=== PATIENT | male | born 1970 | race Caucasian/White ===

== ENCOUNTER → 2022-06-08 12:00 | Outpatient (CLI) | payer SELFPAY ==
[2022-06-08 19:58] LABS: Basophils # 0.1 K/mm3 (0-0.2); Basophils % 0.8 % (0.1-2.0); Eosinophils # 0.1 K/mm3 (0.0-0.4); Eosinophils % 1.4 % (0.1-12.0); Hematocrit 53.9 % (42.0-52.0); Hemoglobin 17.2 g/dL (14.1-18.0); Lymphocytes % 24.3 % (10-50); Mean Corpuscular HGB Conc 31.9 g/dL (31.8-35.4); Mean Corpuscular Hemoglobin 35.5 pg (27.0-31.2); Mean Corpuscular Volume 111.4 fl (80-94); Mean Platelet Volume 8.7 fl (7.4-10.4); Monocytes # 0.5 K/mm3 (0.1-1.0); Monocytes % 6.2 % (1.7-9.3); Neutrophils # 5.5 K/mm3 (1.8-7.8); Neutrophils % 67.3 % (37.0-80.0); Platelet Count 335 K/mm3 (142-424); Red Blood Count 4.84 M/mm3 (4.60-6.20); Red Cell Distribution Width 14.2 % (11.5-17.5); White Blood Count 8.2 K/mm3 (4.8-10.8)
[2022-06-08 20:06] LABS: Anion Gap 15.8 mEq/L (5-15); Blood Urea Nitrogen 7 mg/dl (9-20); Calcium 8.6 mg/dl (8.4-10.2); Carbon Dioxide 31 mmol/L (22.0-30.0); Chloride 97 mmol/L (98-107); Estimated Glomerular Filt Rate 141 ml/min (>60); GFR (African American) 171 ML/MIN (>60); Glucose 97 mg/dl (74-100); Potassium 4.8 mmoL/L (3.5-5.1); Sodium 139 mmol/L (136-145)
== END ==
PROVIDERS: PCP Family Medicine; Visit Provider Family Medicine
DX: R53.81 Other malaise (principal); R53.83 Other fatigue; I10 Essential (primary) hypertension; G62.9 Polyneuropathy, unspecified; Z20.822 Contact with and (suspected) exposure to COVID-19
CPT/HCPCS: 80048; 82533; 85025; C9803; U0003; U0005

== ENCOUNTER → 2022-06-14 11:58 | Outpatient (CLI) | payer OTHER, SELFPAY ==
[2022-06-14 12:52] LABS: Basophils # 0.1 K/mm3 (0-0.2); Basophils % 0.7 % (0.1-2.0); Eosinophils # 0.1 K/mm3 (0.0-0.4); Eosinophils % 0.7 % (0.1-12.0); Hematocrit 50.3 % (42.0-52.0); Hemoglobin 16.4 g/dL (14.1-18.0); Lymphocytes # 1.3 K/mm3 (0.7-4.5); Lymphocytes % 17.7 % (10-50); Mean Corpuscular HGB Conc 32.6 g/dL (31.8-35.4); Mean Corpuscular Hemoglobin 36.2 pg (27.0-31.2); Mean Corpuscular Volume 110.9 fl (80-94); Mean Platelet Volume 7.8 fl (7.4-10.4); Monocytes # 0.3 K/mm3 (0.1-1.0); Monocytes % 4.4 % (1.7-9.3); Neutrophils # 5.7 K/mm3 (1.8-7.8); Neutrophils % 76.5 % (37.0-80.0); Platelet Count 269 K/mm3 (142-424); Red Blood Count 4.54 M/mm3 (4.60-6.20); Red Cell Distribution Width 14.5 % (11.5-17.5); White Blood Count 7.5 K/mm3 (4.8-10.8)
[2022-06-14 12:57] LABS: Ammonia < 9 umol/L (9-30)
[2022-06-14 13:29] LABS: Alanine Aminotransferase 19 U/L (12-78); Albumin Level 4.7 g/dl (3.5-5.0); Albumin/Globulin Ratio 1.7 (1.1-1.8); Alkaline Phosphatase 175 U/L (38-126); Aspartate Amino Transferase 45 U/L (17-59); Bilirubin,Total 0.7 mg/dl (0.2-1.3); Blood Urea Nitrogen 5 mg/dl (9-20); Calcium 9.8 mg/dl (8.4-10.2); Carbon Dioxide 29 mmol/L (22.0-30.0); Chloride 92 mmol/L (98-107); Erythrocyte Sedimentation Rate 4 mm/hr (0-20); Estimated Glomerular Filt Rate 175 ml/min (>60); GFR (African American) 211 ML/MIN (>60); Globulin 2.7 g/dL (1.3-3.2); Glucose 95 mg/dl (74-100); Sodium 136 mmol/L (136-145); Total Protein,Serum 7.4 g/dl (6.3-8.2)
[2022-06-14 13:31] LABS: Ethyl Alcohol 281 mg/dl (0-10)
[2022-06-14 14:35] LABS: Vitamin B12 626 pg/mL (239-931)
[2022-06-14 14:44] LABS: Folate 8.46 ng/mL
[2022-06-15 15:20] LABS: Angiotensin Converting Enzyme 112 U/L (14-82)
[2022-06-16 18:13] LABS: Vitamin B1 170.4 nmol/L (66.5-200.0)
[2022-07-13 11:40] LABS: Hep A Ab, IgM NEGATIVE; Hepatitis B Core Antibody IgM NEGATIVE; Hepatitis B Surface Antigen NEGATIVE
[2022-07-13 11:41] LABS: Antinuclear Antibodies (ANA) NEGATIVE; Hepatitis C Antibody <0.1
[2022-07-30 21:53] LABS: HIV Screen 4th Generation wRfx Non Reactive
== END ==
PROVIDERS: PCP Family Medicine; Visit Provider Specialist
DX: G62.9 Polyneuropathy, unspecified (principal); G31.2 Degeneration of nervous system due to alcohol
CPT/HCPCS: 36415; 80053; 80074; 82140; 82164; 82607; 82746; 84425; 85025; 85651; 86038; 86225; 86235; 86703; G0432

== ENCOUNTER → 2023-02-15 17:00 | Outpatient (CLI) | payer OTHER, SELFPAY ==
[2023-02-15 17:13] LABS: Chloride 93 mmol/L (98-107); Sodium 133 mmol/L (136-145)
[2023-02-15 17:14] LABS: Basophils % 0.2 % (0.1-2.0); Eosinophils # 0.1 K/mm3 (0.0-0.4); Eosinophils % 0.6 % (0.1-12.0); Hematocrit 39.2 % (42.0-52.0); Hemoglobin 12.9 g/dL (14.1-18.0); Lymphocytes # 1.5 K/mm3 (0.7-4.5); Lymphocytes % 9.6 % (10-50); Mean Corpuscular Hemoglobin 33.5 pg (27.0-31.2); Mean Corpuscular Volume 101.6 fl (80-94); Mean Platelet Volume 8.8 fl (7.4-10.4); Monocytes % 6.4 % (1.7-9.3); Neutrophils # 12.7 K/mm3 (1.8-7.8); Neutrophils % 83.2 % (37.0-80.0); Platelet Count 676 K/mm3 (142-424); Red Blood Count 3.85 M/mm3 (4.60-6.20); Red Cell Distribution Width 14.9 % (11.5-17.5); White Blood Count 15.2 K/mm3 (4.8-10.8)
[2023-02-15 17:15] LABS: Blood Urea Nitrogen 15 mg/dl (9-20); Estimated Glomerular Filt Rate 174 ml/min (>60); GFR (African American) 210 ML/MIN (>60)
[2023-02-15 17:16] LABS: Alanine Aminotransferase 20 U/L (12-78); Albumin Level 3.2 g/dl (3.5-5.0); Albumin/Globulin Ratio 1.3 (1.1-1.8); Alkaline Phosphatase 93 U/L (38-126); Aspartate Amino Transferase 30 U/L (17-59); Bilirubin,Total 0.2 mg/dl (0.2-1.3); Calcium 8.8 mg/dl (8.4-10.2); Carbon Dioxide 30 mmol/L (22.0-30.0); Globulin 2.4 g/dL (1.3-3.2); Glucose 83 mg/dl (74-100); Total Protein,Serum 5.6 g/dl (6.3-8.2)
[2023-02-15 17:17] LABS: MANUAL DIFFERENTIAL MANUAL DIFFERENTIAL (MANUAL DIFF)
[2023-02-15 17:53] LABS: Eosinophils % 1 % (0-3); Lymphocytes % 10 % (10-50); Monocytes % 1 % (2-9); Neutrophils % 88 % (42-76); Total Cells Counted 100
[2023-02-15 17:54] LABS: Platelet Estimate Moderate Increase; Poikilocytosis 1+
== END ==
PROVIDERS: PCP Family Medicine; Visit Provider Family Medicine
DX: I10 Essential (primary) hypertension (principal)
CPT/HCPCS: 80053; 85007; 85025

== ENCOUNTER → 2023-02-22 14:00 | Outpatient (CLI) | payer OTHER, SELFPAY ==
[2023-02-22 16:33] LABS: Chloride 97 mmol/L (98-107); Sodium 134 mmol/L (136-145)
[2023-02-22 16:34] LABS: Potassium 4.4 mmoL/L (3.5-5.1)
[2023-02-22 16:37] LABS: Blood Urea Nitrogen 10 mg/dl (9-20); Calcium 8.6 mg/dl (8.4-10.2); Estimated Glomerular Filt Rate 225 ml/min (>60); GFR (African American) 272 ML/MIN (>60); Glucose 86 mg/dl (74-100)
[2023-02-22 16:39] LABS: Anion Gap 13.4 mEq/L (5-15); Carbon Dioxide 28 mmol/L (22.0-30.0)
== END ==
PROVIDERS: PCP Family Medicine; Visit Provider Family Medicine
DX: E87.1 Hypo-osmolality and hyponatremia (principal)
CPT/HCPCS: 80048

== ENCOUNTER 2024-03-14 12:03 | Outpatient (CLI) | payer OTHER, SELFPAY ==
[2024-03-14 17:15] LABS: Basophils % 0.4 % (0.1-2.0); Eosinophils # 0.1 K/mm3 (0.0-0.4); Eosinophils % 0.7 % (0.1-12.0); Hematocrit 40.2 % (42.0-52.0); Hemoglobin 12.7 g/dL (14.1-18.0); Lymphocytes # 1.4 K/mm3 (0.7-4.5); Lymphocytes % 19.5 % (10-50); Mean Corpuscular HGB Conc 31.6 g/dL (31.8-35.4); Mean Corpuscular Volume 117.3 fl (80-94); Mean Platelet Volume 8.9 fl (7.4-10.4); Monocytes # 0.5 K/mm3 (0.1-1.0); Neutrophils # 5.1 K/mm3 (1.8-7.8); Neutrophils % 72.4 % (37.0-80.0); Platelet Count 761 K/mm3 (142-424); Red Blood Count 3.43 M/mm3 (4.60-6.20)
[2024-03-14 17:18] LABS: Alanine Aminotransferase 28 U/L (12-78); Albumin Level 3.7 g/dl (3.5-5.0); Albumin/Globulin Ratio 1.4 (1.1-1.8); Alkaline Phosphatase 215 U/L (38-126); Anion Gap 13.8 mEq/L (5-15); Aspartate Amino Transferase 42 U/L (17-59); Bilirubin,Total 0.5 mg/dl (0.2-1.3); Blood Urea Nitrogen 8 mg/dl (9-20); Carbon Dioxide 23 mmol/L (22.0-30.0); Chloride 106 mmol/L (98-107); Estimated Glomerular Filt Rate 224 ml/min (>60); GFR (African American) 271 ML/MIN (>60); Globulin 2.6 g/dL (1.3-3.2); Glucose 75 mg/dl (74-100); Magnesium 1.5 mg/dl (1.6-2.3); Potassium 3.8 mmoL/L (3.5-5.1); Sodium 139 mmol/L (136-145); Total Protein,Serum 6.3 g/dl (6.3-8.2)
[2024-03-14 18:37] LABS: Folate > 20.00 ng/mL; Vitamin B12 > 1000 pg/mL (239-931)
== END 2024-03-14 23:59 | disposition home or self-care (01) ==
LOC: LAB.DROPOF 03-15 12:03
PROVIDERS: PCP Nurse Practitioner Family; Visit Provider Nurse Practitioner Family
DX: E87.6 Hypokalemia (principal); E83.42 Hypomagnesemia; E56.9 Vitamin deficiency, unspecified
CPT/HCPCS: 80053; 82607; 82746; 83735; 85025

== ENCOUNTER 2024-03-25 15:20 | Outpatient (CLI) | payer OTHER, SELFPAY ==
[2024-03-25 18:02] LABS: Basophils % 0.4 % (0.1-2.0); Eosinophils # 0.2 K/mm3 (0.0-0.4); Eosinophils % 2.4 % (0.1-12.0); Hematocrit 44.4 % (42.0-52.0); Hemoglobin 14.4 g/dL (14.1-18.0); Lymphocytes # 1.9 K/mm3 (0.7-4.5); Lymphocytes % 24.4 % (10-50); Mean Corpuscular HGB Conc 32.5 g/dL (31.8-35.4); Mean Corpuscular Hemoglobin 36.7 pg (27.0-31.2); Mean Corpuscular Volume 112.8 fl (80-94); Mean Platelet Volume 8.7 fl (7.4-10.4); Monocytes # 0.7 K/mm3 (0.1-1.0); Monocytes % 9.2 % (1.7-9.3); Neutrophils # 4.8 K/mm3 (1.8-7.8); Neutrophils % 63.5 % (37.0-80.0); Platelet Count 530 K/mm3 (142-424); Red Blood Count 3.94 M/mm3 (4.60-6.20); Red Cell Distribution Width 14.4 % (11.5-17.5); Reticulocyte % (Auto) 1.9 % (0.9-3.2); White Blood Count 7.6 K/mm3 (4.8-10.8)
[2024-03-25 18:26] LABS: Anion Gap 16.9 mEq/L (5-15); Blood Urea Nitrogen 7 mg/dl (9-20); Calcium 9.9 mg/dl (8.4-10.2); Carbon Dioxide 20 mmol/L (22.0-30.0); Chloride 99 mmol/L (98-107); Estimated Glomerular Filt Rate 224 ml/min (>60); GFR (African American) 271 ML/MIN (>60); Glucose 93 mg/dl (74-100); Potassium 3.9 mmoL/L (3.5-5.1); Sodium 132 mmol/L (136-145)
[2024-03-26 14:29] LABS: Magnesium 1.8 mg/dl (1.6-2.3)
== END 2024-03-25 23:59 | disposition home or self-care (01) ==
LOC: LAB.DROPOF 03-26 15:20
PROVIDERS: PCP Family Medicine; Visit Provider Family Medicine
DX: I10 Essential (primary) hypertension (principal); R79.0 Abnormal level of blood mineral; Z72.0 Tobacco use
CPT/HCPCS: 80048; 83735; 85025; 85044

== ENCOUNTER 2024-10-26 14:53 | Inpatient (IN) | payer OTHER, SELFPAY ==
[2024-10-26] VITALS (19 sets, daily range): BP systolic 152–193; BP diastolic 99–144; PULSE 68–115; RESP 16–30; TEMP 36.6–37.2; O2SAT 90–100; BMI 22.4; BMI 21.4
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
[2024-10-26] MEDS: MVI, ADULT NO.1 WITH VIT K 10 ML, THIAMINE HCL 100 MG, MAGNESIUM SULFATE 2 GM in LACTAT... 150 ML IV (15:30)
[2024-10-26] MEDS: diazePAM 10MG/2ML SYRINGE 10 MG IV (15:35)
[2024-10-26] MEDS: ONDANSETRON 4MG/2ML VIAL 4 MG IV (15:37)
[2024-10-26 15:48] LABS: Alanine Aminotransferase 70 U/L (12-78); Albumin Level 4.7 g/dl (3.5-5.0); Albumin/Globulin Ratio 1.8 (1.1-1.8); Alkaline Phosphatase 115 U/L (38-126); Anion Gap 12.6 mEq/L (5-15); Aspartate Amino Transferase 127 U/L (17-59); Bilirubin,Total 2.6 mg/dl (0.2-1.3); Blood Urea Nitrogen 53 mg/dl (9-20); Carbon Dioxide 37 mmol/L (22.0-30.0); Chloride 87 mmol/L (98-107); Creatinine Clearance Estimated 71 mL/min (50-200); Estimated Glomerular Filt Rate 58 ml/min (>60); GFR (African American) 70 ML/MIN (>60); Globulin 2.6 g/dL (1.3-3.2); Glucose 101 mg/dl (74-100); Phosphorous 2.7 mg/dl (2.5-4.5); Sodium 134 mmol/L (136-145); Total Protein,Serum 7.3 g/dl (6.3-8.2)
--- NOTE | 2024-10-26 15:52 | ECG_ITS ---
APPROVED REPORT Exam: Resting ECG HR:113 bpm ECG Measurements Heart Rate 113 AXES ID 137 P 58 QRSd 101 QRS 12 QT 357 T 79 QTc 424 Conclusion SINUS TACHYCARDIA WITH FREQUENT SUPRAVENTRICULAR PREMATURE COMPLEXES NONSPECIFIC T-WAVE ABNORMALITY ABNORMAL RHYTHM ECG UNCONFIRMED REPORT Sinus tachycardia with no ST elevation or depression. T wave inverstions in V2. QTc 424 Electronically signed by : JOSE MAJANO, 10/26/2024 21:02:35
[2024-10-26 15:56] LABS: Ethyl Alcohol < 10 mg/dl (0-10)
[2024-10-26 15:58] LABS: Basophils % 0.2 % (0.1-2.0); Eosinophils % 0.2 % (0.1-12.0); Hemoglobin 15.2 g/dL (14.1-18.0); Lymphocytes # 0.7 K/mm3 (0.7-4.5); Lymphocytes % 5.8 % (10-50); Mean Corpuscular HGB Conc 35.3 g/dL (31.8-35.4); Mean Corpuscular Hemoglobin 36.8 pg (27.0-31.2); Mean Corpuscular Volume 104.1 fl (80-94); Mean Platelet Volume 11.8 fl (7.4-10.4); Monocytes # 1.2 K/mm3 (0.1-1.0); Monocytes % 10.8 % (1.7-9.3); Neutrophils # 9.5 K/mm3 (1.8-7.8); Neutrophils % 82.7 % (37.0-80.0); Platelet Count 146 K/mm3 (142-424); Red Blood Count 4.13 M/mm3 (4.60-6.20); Red Cell Distribution Width 13.8 % (11.5-17.5); White Blood Count 11.5 K/mm3 (4.8-10.8)
[2024-10-26 16:01] LABS: Calcium 12.2 mg/dl (8.4-10.2); Potassium 2.6 mmoL/L (3.5-5.1)
--- NOTE | 2024-10-26 17:30 | PC.NURSE ---
verified compatibility for IV potassium with the rally bag. Joceline PROD states they can be ran together.
[2024-10-26 17:38] LABS: Activated Partial Thrombo Time 20.1 seconds (22.5-28.5); INR 0.87 (0.9-1.1); Prothrombin Time 9.7 seconds (9.2-12.1)
[2024-10-26] MEDS: KCl 20mEq/100ml 100 ML 50 MEQ IV ×2 (17:45→19:47)
--- NOTE | 2024-10-26 17:48 | EXP.HP ---
[facility] Disclaimer: The information contained in this section may have been updated after the patient was seen, as this information can be updated by other users. 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 He is currently on gabapentin prescribed by PCP and he was advised to continue avoiding alcohol, balanced diet, appropriate fluid intake and take thiamine 200 mg daily. Hypertension Surgical History H/O hernia repair Family History Mother Coronary artery disease Father Coronary artery disease Grandfather Diabetes Social History Smoking Status: Current every day smoker alcohol intake: never substance use type: denies use current occupational status: unemployed Travel in the last 8 weeks: Inside the [facility] housing: house Have you lived/traveled outside US in past 30 days?: No Contact w/someone who lives/traveled outside US past 30 days?: No Exposure to someone with infectious disease in past 14 days?: No Do you have a fever (greater than 100.4 F or 38 C)?: No Have you tested positive for COVID-19: No Exposed to someone with COVID-19 in past 14 days?: No Do you have a sore throat?: No Do you have a cough?: No Do you have any weakness?: No Do you have any diarrhea?: No Are you experiencing any unusual bleeding?: No Do you have any muscle aches/pain?: No Do you have any abdominal pain?: No Are you experiencing loss of taste or smell?: No Other Medical History Have you received the Pneumonia Vaccine: No Meds Home Medications and Allergies Home Medications ?Medication ?Instructions ?Recorded ?Confirmed ?Type thiamine HCl (vitamin B1) 100 mg 100 mg PO DAILY #90 tabs 03/14/24 10/26/24 Rx tablet amlodipine 5 mg tablet 10 mg (2 x 5 mg) PO DAILY 30 days 07/09/24 10/26/24 Rx #60 tabs New Prescriptions to Start Prescriptions: Allergies Allergy/AdvReac Type Severity Reaction Status Date / Time No Known Allergies Allergy Verified 10/26/24 15:23 Exam Data for Last 24 hours Vital signs and Labs for Last 24 Hours: Temp Pulse Resp BP Pulse Ox O2 Del Method 98.4 F 110 H 23 172/131 H 97 Nasal Cannula 10/26/24 14:54 10/26/24 17:30 10/26/24 14:54 10/26/24 17:30 10/26/24 17:30 10/26/24 17:30 Laboratory Results - last 24 hr 10/26/24 15:10: WBC 11.5 H, RBC 4.13 L, Hgb 15.2, Hct 43.0, MCV 104.1 H, MCH 36.8 H, MCHC 35.3, RDW 13.8, Plt Count 146, MPV 11.8 H, Neut % (Auto) 82.7 H, Lymph % (Auto) 5.8 L, [place] % (Auto) 10.8 H, Eos % (Auto) 0.2, Baso % (Auto) 0.2, Neut # (Auto) 9.5 H, Lymph # (Auto) 0.7, [place] # (Auto) 1.2 H, Eos # (Auto) 0.0, Baso # (Auto) 0.0, Sodium 134 L, Potassium 2.6 L*, Chloride 87 L, Carbon Dioxide 37 H, Anion Gap 12.6, BUN 53 H, Creatinine 1.30 H, Estimated Creat Clear 71, Estimated GFR 58 L, Est GFR ( Amer) 70, Glucose 101 H, Calcium 12.2 H*, Phosphorus 2.7, Magnesium 2.0, Total Bilirubin 2.6 H, AST 127 H, ALT 70, Alkaline Phosphatase 115, Total Protein 7.3, Albumin 4.7, Globulin 2.6, Albumin/Globulin Ratio 1.8, Plasma/Serum Alcohol < 10 I & O for Last 24 hours: Intake & Output 10/23/24 10/24/24 10/25/24 10/26/24 23:59 23:59 23:59 23:59 Weight 77.111 kg
--- NOTE | 2024-10-26 18:10 | PC.NURSE ---
notified of the need for a bed to admit for alcohol withdrawal.
--- NOTE | 2024-10-26 18:19 | PC.NURSE ---
house notified of admission to hospitalist for alcohol withdrawl
[2024-10-26 18:39] LABS: HIV Combo NEGATIVE (Negative)
[2024-10-26] MEDS: HYDRALAZINE 20MG/ML VIAL 10 MG IV (20:15)
[2024-10-26 20:28] LABS: Hepatitis C Ab Qual. W/ RFX NEGATIVE (Negative)
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
[2024-10-26] MEDS: PANTOPRAZOLE 40MG VIAL 40 MG IV (21:51)
[2024-10-26] MEDS: diazePAM 10MG/2ML SYRINGE 2 MG IV (23:17)
[2024-10-27] VITALS (21 sets, daily range): BP systolic 121–162; BP diastolic 92–123; PULSE 79–108; RESP 18–30; TEMP 36.6–37.1; O2SAT 83–95; BMI 22.9
[2024-10-27] MEDS: METOPROLOL TARTRATE 5MG/5ML VIAL 5 MG IV (00:08)
[2024-10-27] MEDS: LABETALOL 5MG/ML 20ML MDV 20 MG IV (01:10)
[2024-10-27] MEDS: 0.9% NaCl w/20mEq KCL 1,000 ML 125 ML IV ×3 (01:10→18:08)
[2024-10-27 02:02] LABS: Chloride 91 mmol/L (98-107); Sodium 132 mmol/L (136-145)
[2024-10-27 02:05] LABS: Anion Gap 8.6 mEq/L (5-15); Blood Urea Nitrogen 52 mg/dl (9-20); Carbon Dioxide 35 mmol/L (22.0-30.0); Creatinine Clearance Estimated 98 mL/min (50-200); Estimated Glomerular Filt Rate 88 ml/min (>60); GFR (African American) 106 ML/MIN (>60)
[2024-10-27 02:06] LABS: Calcium 10.1 mg/dl (8.4-10.2); Glucose 99 mg/dl (74-100)
--- NOTE | 2024-10-27 02:15 | PC.NURSE ---
Critical received from lab of patient K+ at 2.6. Provider notified, electrolyte replacement protocol utilized. SEE MAR.
[2024-10-27 02:20] LABS: Potassium 2.6 mmoL/L (3.5-5.1)
[2024-10-27] MEDS: KCl 20mEq/100ml 100 ML 50 MEQ IV ×4 (02:50→08:45)
[2024-10-27 05:17] LABS: Microscopic, Urine URINE MICROSCOPIC (MICROSCOPIC)
[2024-10-27 05:20] LABS: Appearance,Urine CLEAR (Clear); Blood, Urine Negative (Negative); Color,Urine YELLOW (Yellow); Glucose,Urine (UA) Negative (Negative); Ketones,Urine TRACE (Negative); Leukocyte Esterase,Urine Negative (Negative); Nitrate,Urine Negative (Negative); PH,Urine 5.5 (5.0-8.5); Protein,Urine TRACE (Negative); Specific Gravity, Urine >= 1.030 (1.005-1.030)
[2024-10-27 05:30] LABS: Amphetamine/Metha Screen,Urine Negative ng/ml (<1000)
[2024-10-27 05:31] LABS: Barbiturates Screen,Urine Negative ng/ml (<200); Benzodiazepines Screen,Urine Positive ng/ml (<200)
[2024-10-27 05:32] LABS: Cocaine Screen,Urine Negative ng/ml (<300)
[2024-10-27 05:33] LABS: Cannabinoid Screen,Urine Negative ng/ml (<50); Methadone Screen,Urine Negative ng/ml (<300)
[2024-10-27 05:34] LABS: Opiate Screen,Urine Negative ng/ml (<300); Phencyclidine Screen,Urine Negative ng/ml (<25)
[2024-10-27 05:46] LABS: Bilirubin,Urine Negative (Negative)
[2024-10-27 05:47] LABS: Bacteria,Urine Trace /lpf
--- NOTE | 2024-10-27 07:00 | XR_ITS ---
PROCEDURE INFORMATION: Exam: XR Left Hip Exam date and time: 10/27/2024 7:01 AM Age: 53 years old Clinical indication: Cellulitis and other: Deformity; Buttock; Known unfixed pelvic FX TECHNIQUE: Imaging protocol: Radiologic exam of the left hip. Views: 2 or 3 views hip with pelvis when performed. COMPARISON: No relevant prior studies available. FINDINGS: Bones/joints: There is dysplastic change of the right iliac bone consistent with old fracture. The remaining alignment is within normal limits with no acute fracture or dislocation. There is normal bony mineralization.There is mild degenerative arthropathy. Soft tissues: Unremarkable. Vasculature: There is diffuse atherosclerosis with calcification of the arteries.There are punctate calcifications with subtle central radiolucency consistent with phleboliths. IMPRESSION: No acute bony process is identified.
--- NOTE | 2024-10-27 07:00 | XR_ITS ---
PROCEDURE INFORMATION: Exam: XR Right Hip Exam date and time: 10/27/2024 6:53 AM Age: 53 years old Clinical indication: Cellulitis and other: Deformity; Buttock; Known unfixed pelvic FX TECHNIQUE: Imaging protocol: Radiologic exam of the right hip. Views: 2 or 3 views hip with pelvis when performed. COMPARISON: No relevant prior studies available. FINDINGS: Bones/joints: There is dysplastic change involving the right iliac bone consistent with old fracture. The remaining alignment and mineralization is within normal limits with no acute fracture or dislocation identified.There is mild degenerative arthropathy. Soft tissues: Unremarkable. Vasculature: There is diffuse atherosclerosis with calcification of the arteries.There are punctate calcifications with subtle central radiolucency consistent with phleboliths. IMPRESSION: No acute bony process is identified.
[2024-10-27 07:17] LABS: Basophils % 0.1 % (0.1-2.0); Hematocrit 40.6 % (42.0-52.0); Lymphocytes # 0.5 K/mm3 (0.7-4.5); Lymphocytes % 5.5 % (10-50); Mean Corpuscular HGB Conc 34.5 g/dL (31.8-35.4); Mean Corpuscular Volume 107.4 fl (80-94); Mean Platelet Volume 11.4 fl (7.4-10.4); Monocytes # 1.5 K/mm3 (0.1-1.0); Monocytes % 17.3 % (1.7-9.3); Neutrophils # 6.7 K/mm3 (1.8-7.8); Neutrophils % 76.5 % (37.0-80.0); Platelet Count 124 K/mm3 (142-424); Red Blood Count 3.78 M/mm3 (4.60-6.20); Red Cell Distribution Width 14.3 % (11.5-17.5); White Blood Count 8.8 K/mm3 (4.8-10.8)
[2024-10-27 07:31] LABS: Albumin Level 3.6 g/dl (3.5-5.0); Chloride 95 mmol/L (98-107); Potassium 3.2 mmoL/L (3.5-5.1); Sodium 136 mmol/L (136-145)
[2024-10-27 07:33] LABS: Blood Urea Nitrogen 50 mg/dl (9-20); Creatinine Clearance Estimated 104 mL/min (50-200); Estimated Glomerular Filt Rate 88 ml/min (>60); GFR (African American) 106 ML/MIN (>60)
[2024-10-27 07:34] LABS: Alanine Aminotransferase 48 U/L (12-78); Albumin/Globulin Ratio 1.6 (1.1-1.8); Alkaline Phosphatase 105 U/L (38-126); Anion Gap 11.2 mEq/L (5-15); Aspartate Amino Transferase 98 U/L (17-59); Bilirubin,Total 1.6 mg/dl (0.2-1.3); Calcium 10.2 mg/dl (8.4-10.2); Carbon Dioxide 33 mmol/L (22.0-30.0); Globulin 2.3 g/dL (1.3-3.2); Glucose 77 mg/dl (74-100); Magnesium 2.1 mg/dl (1.6-2.3); Total Protein,Serum 5.9 g/dl (6.3-8.2)
--- NOTE | 2024-10-27 08:04 | HMH.PHAINT1 ---
Pharmacy Intervention Comments: MEDICATION RECONCILIATION COMPLETED ON PATIENT USING EXTERNAL FILL HISTORY FROM PHARMACY. -[facility], [facility]
[2024-10-27] MEDS: FOLIC ACID 1MG TABLET 1 MG PO (08:46)
[2024-10-27] MEDS: ENOXAPARIN 40MG/0.4ML SYRINGE 40 MG SUBCUT (08:46)
[2024-10-27] MEDS: THIAMINE 100MG TABLET 100 MG PO (08:46)
--- NOTE | 2024-10-27 09:47 | PC.NURSE ---
Pt stood up from bed with x2 assistance.Pt was weak. Pt was unable to ambulate, stated he couldn't see without his glasses. Pt does not have glasses at hospital.
[2024-10-27] MEDS: diazePAM 5MG TABLET 5 MG PO ×2 (10:44→22:09)
--- NOTE | 2024-10-27 10:59 | XR_ITS ---
PROCEDURE INFORMATION: Exam: XR Chest Exam date and time: 10/27/2024 11:11 AM Age: 53 years old Clinical indication: Other: Hypoxia TECHNIQUE: Imaging protocol: Radiologic exam of the chest. Views: 1 view. COMPARISON: No relevant prior studies available. FINDINGS: Lungs: Bilateral lower lobe opacification, [id number].The lungs are hyperinflated consistent with COPD. Pleural spaces: Left apical pneumothorax measuring approximately 30% without mediastinal shift. Heart/Mediastinum: Unremarkable. No cardiomegaly. Bones/joints: Unremarkable. IMPRESSION: 1. Left-sided pneumothorax measuring approximately 30% without radiographic evidence of tension at this time. 2. Bilateral lower lobe opacification may be atelectasis and/or infiltrate depending on clinical context.
--- NOTE | 2024-10-27 12:37 | XR_ITS ---
PROCEDURE INFORMATION: Exam: XR Chest Exam date and time: 10/27/2024 12:44 PM Age: 53 years old Clinical indication: Device placement; Chest tube; Additional info: Chest tube placement TECHNIQUE: Imaging protocol: Radiologic exam of the chest. Views: 1 view. COMPARISON: CR XR CHEST PORTABLE 10/27/2024 11:11 AM FINDINGS: Tubes, catheters and devices: Left pigtail thoracostomy drain. Lungs: Left lung base patchy airspace infiltration. Pleural spaces: No identifiable pneumothorax. Veil like opacity of the left costophrenic angle. Heart/Mediastinum: Unremarkable. No cardiomegaly. Bones/joints: Unremarkable. IMPRESSION: 1. Interval left pigtail thoracostomy drain without an identifiable residual pneumothorax. 2. Left pleural effusion. 3. Left lung base patchy airspace infiltration, nonspecific, could represent edema, atelectasis, pneumonia not entirely excluded.
[2024-10-27] MEDS: PIPERACILLIN/TAZO 4.5 GM in 0.9 % SODIUM CHLORIDE 100 ML IV ×2 (13:41→18:08)
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
--- NOTE | 2024-10-27 14:20 | PC.NURSE ---
arrived by bed from ICU at 14:14
--- NOTE | 2024-10-27 15:34 | PC.NURSE ---
[address] Monique that pt is requiring 3lpm oxygen. pt does not wear o2 at home. lungs are diminished but clear. 1059 order entered for chest xray. [address] Monique that md received call from [facility]. pt has pneumothorax. MD contacted ER md to place chest tube. consent was obtained from pt family as pt is confused at this time. situation explained to pt, states he understands that he needs procedure and is agreeable to have staff call his family for consent. 1200 pt parents Chandu and Farhana Simmons contacted, consent obtained and verified by TIANNA Leo. 1205 Dr Ferrari at bedside to prepare for procedure.
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
[2024-10-27] MEDS: MULTIVITAMIN TABLET 1 EACH PO (18:08)
[2024-10-27 18:44] LABS: Adenovirus,PCR Not Detected (NotDetected); Bordetella Pertussis Not Detected (NotDetected); Chlamydophila Pneumoniae, PCR Not Detected (NotDetected); Coronavirus 19, PCR Not Detected (NotDetected); Coronavirus 229E Not Detected (NotDetected); Coronavirus NL63 Not Detected (NotDetected); Coronavirus OC43 Not Detected (NotDetected); Coronovirus HKU1,PCR Not Detected (NotDetected); Human Metapneumovirus Not Detected (NotDetected); Influenza A, PCR Not Detected (NotDetected); Influenza AH1, 2009 Not Detected (NotDetected); Influenza AH1, PCR Not Detected (NotDetected); Influenza AH3,PCR Not Detected (NotDetected); Influenza B, PCR Not Detected (NotDetected); Mycoplasma Pneumoniae, PCR Not Detected (NotDetected); Parainfluenza 1, PCR Not Detected (NotDetected); Parainfluenza 2, PCR Not Detected (NotDetected); Parainfluenza 3, PCR Not Detected (NotDetected); Parainfluenza 4, PCR Not Detected (NotDetected); Respiratory Syncytial Virus Not Detected (NotDetected); Rhinovirus/Enterovirus Not Detected (NotDetected)
--- NOTE | 2024-10-27 18:46 | PC.NURSE ---
pt resting supine in bed with mother and father at bedside. chest tube to left side water sealed. pt is only alert to self. tolerating 2L NC with sats >90%. pt received a bath this shift. no complaints of pain at this time. call light within reach.
[2024-10-27] MEDS: PANTOPRAZOLE 40MG VIAL 40 MG IV (20:21)
[2024-10-28] VITALS (12 sets, daily range): BP systolic 124–176; BP diastolic 86–119; PULSE 69–135; RESP 16–30; TEMP 36.6–37.4; O2SAT 93–100; BMI 22.8
[2024-10-28] MEDS: PIPERACILLIN/TAZO 4.5 GM in 0.9 % SODIUM CHLORIDE 100 ML IV ×5 (00:18→23:25)
[2024-10-28] MEDS: 0.9% NaCl w/20mEq KCL 1,000 ML 125 ML IV ×3 (03:29→23:22)
--- NOTE | 2024-10-28 06:00 | XR_ITS ---
PROCEDURE INFORMATION: Exam: XR Chest Exam date and time: 10/28/2024 5:57 AM Age: 53 years old Clinical indication: Other: Pneumothorax; Additional info: Follow-up pneumothorax TECHNIQUE: Imaging protocol: Radiologic exam of the chest. Views: 1 view. COMPARISON: CR XR CHEST PORTABLE 10/27/2024 12:44 PM FINDINGS: Lungs: Left basilar atelectasis. No consolidation. Pleural spaces: Unremarkable. Small left pleural effusion. No pneumothorax. Heart/Mediastinum: Unremarkable. No cardiomegaly. Bones/joints: Unremarkable. IMPRESSION: No pneumothorax noted. Left basilar atelectasis and effusion stable.
--- NOTE | 2024-10-28 06:41 | PC.NURSE ---
Pt a&ox3. He has remained on 2L nasal cannula with O2 sats greater then 92%. Chest tube on left side has remained to water seal. CIWA scores of 5, 6 this shift.. Bed alarm in place. No complaints at this time, call light within reach.
[2024-10-28 08:12] LABS: Basophils % 0.4 % (0.1-2.0); Hematocrit 42.2 % (42.0-52.0); Hemoglobin 14.1 g/dL (14.1-18.0); Lymphocytes # 0.5 K/mm3 (0.7-4.5); Lymphocytes % 6.1 % (10-50); Mean Corpuscular HGB Conc 33.4 g/dL (31.8-35.4); Mean Corpuscular Hemoglobin 37.2 pg (27.0-31.2); Mean Corpuscular Volume 111.3 fl (80-94); Mean Platelet Volume 10.3 fl (7.4-10.4); Monocytes # 1.8 K/mm3 (0.1-1.0); Monocytes % 21.1 % (1.7-9.3); Neutrophils # 6.1 K/mm3 (1.8-7.8); Neutrophils % 71.9 % (37.0-80.0); Platelet Count 146 K/mm3 (142-424); Red Blood Count 3.79 M/mm3 (4.60-6.20); Red Cell Distribution Width 14.6 % (11.5-17.5); White Blood Count 8.5 K/mm3 (4.8-10.8)
[2024-10-28 08:16] LABS: MANUAL DIFFERENTIAL MANUAL DIFFERENTIAL (MANUAL DIFF)
[2024-10-28 08:38] LABS: Alanine Aminotransferase 48 U/L (12-78); Albumin Level 3.4 g/dl (3.5-5.0); Albumin/Globulin Ratio 1.5 (1.1-1.8); Alkaline Phosphatase 96 U/L (38-126); Anion Gap 11.2 mEq/L (5-15); Aspartate Amino Transferase 72 U/L (17-59); Blood Urea Nitrogen 29 mg/dl (9-20); Calcium 9.4 mg/dl (8.4-10.2); Carbon Dioxide 28 mmol/L (22.0-30.0); Chloride 107 mmol/L (98-107); Creatinine Clearance Estimated 155 mL/min (50-200); Estimated Glomerular Filt Rate 140 ml/min (>60); GFR (African American) 170 ML/MIN (>60); Globulin 2.2 g/dL (1.3-3.2); Glucose 74 mg/dl (74-100); Magnesium 1.7 mg/dl (1.6-2.3); Potassium 3.2 mmoL/L (3.5-5.1); Sodium 143 mmol/L (136-145); Total Protein,Serum 5.6 g/dl (6.3-8.2)
[2024-10-28] MEDS: FOLIC ACID 1MG TABLET 1 MG PO (09:01)
[2024-10-28] MEDS: ENOXAPARIN 40MG/0.4ML SYRINGE 40 MG SUBCUT (09:01)
--- NOTE | 2024-10-28 09:06 | PC.NURSE ---
Addendum entered by Cinda Solares RN 10/28/24 10:17: Also notified MD of abdominal breathing Original Note: notified MD of elevated blood pressures
[2024-10-28 09:09] LABS: Thyroid Stimulating Hormone 0.89 uIU/mL (0.465-4.68)
[2024-10-28] MEDS: diazePAM 5MG TABLET 5 MG PO (09:10)
[2024-10-28 09:37] LABS: Hemoglobin A1C 4.4 % (4.0-6.0)
--- NOTE | 2024-10-28 09:40 | P.CONS_ITS ---
History of Present Illness History of present illness: Mr. Simmons is a 53-year-old male with reported history of alcohol admit presented to ER with generalized weakness and altered mentation. Much of the history is obtained from chart review And upon examination appeared to be in very severe respiratory distress post chest tube dislodgment. Able to speak in complete sentences [facility] Disclaimer: The information contained in this section may have been updated after the patient was seen, as this information can be updated by other users. Medical History (Updated 10/28/24 @ 12:47 by Danny Mane MD) Acute respiratory failure with hypoxia Neuropathy Hypertension Surgical History H/O hernia repair Family History Mother Coronary artery disease Father Coronary artery disease Grandfather Diabetes Social History Smoking Status: Current every day smoker alcohol intake: never substance use type: denies use current occupational status: unemployed Travel in the last 8 weeks: Inside the [facility] housing: house Have you lived/traveled outside US in past 30 days?: No Contact w/someone who lives/traveled outside US past 30 days?: No Exposure to someone with infectious disease in past 14 days?: No Do you have a fever (greater than 100.4 F or 38 C)?: No Have you tested positive for COVID-19: No Exposed to someone with COVID-19 in past 14 days?: No Do you have a sore throat?: No Do you have a cough?: No Do you have any weakness?: No Do you have any diarrhea?: No Are you experiencing any unusual bleeding?: No Do you have any muscle aches/pain?: No Do you have any abdominal pain?: No Are you experiencing loss of taste or smell?: No Review of Systems Constitutional Constitutional: Reports body ache(s) ENT Ears, Nose, Mouth, and Throat: Denies throat swelling *Cardiovascular Cardiovascular: Reports dyspnea and Reports dyspnea on exertion *Respiratory Respiratory: Denies change in phlegm color, Reports chest congestion, Reports cough, Reports dyspnea, Reports dyspnea on exertion, Denies excessive phlegm production, Denies hemoptysis, Denies pain with cough and Reports wheezing *Gastrointestinal Gastrointestinal: Denies abdominal pain, Denies belching and Denies cramping *Musculoskeletal Musculoskeletal: Reports myalgias Endocrine Endocrine: Denies heat intolerance Hematologic/Lymphatic Hematologic/Lymphatic: Denies easy bleeding and Denies lymphadenopathy Allergic/Immunologic Allergic/Immunologic: Denies throat swelling and Reports wheezing Pulmonology Exam Inpatient Vital signs and Labs for Last 24 Hours: Temp Pulse Resp BP Pulse Ox O2 Del Method O2 Flow Rate 98.4 F 84 18 170/119 H 94 L Nasal Cannula 2 10/28/24 07:31 10/28/24 07:31 10/28/24 07:31 10/28/24 07:33 10/28/24 07:31 10/28/24 07:31 10/28/24 07:31 Laboratory Results - last 24 hr 10/27/24 18:30: Chlamy pneumoniae PCR Not detected, Adenovirus (PCR) Not detected, B. pertussis DNA (PCR) Not detected, Coronavirus OC43 (PCR) Not detected, Coronavirus HKU1 (PCR) Not detected, Coronavirus 229E (PCR) Not detected, SARS-CoV-2 (PCR) Not detected, Coronavirus NL63 (PCR) Not detected, Human Metapneumovir PCR Not detected, Influenza A (H1) PCR Not detected, Influ A (H1N1/09) PCR Not detected, Influenza A (H3) PCR Not detected, Influenza Type A (PCR) Not detected, Influenza Type B (PCR) Not detected, M. pneumoniae (PCR) Not detected, Parainfluenza 1 (PCR) Not detected, Parainfluenza 2 (PCR) Not detected, Parainfluenza 3 (PCR) Not detected, Parainfluenza 4 (PCR) Not detected, RSV (PCR) Not detected, Entero/Rhino (PCR) Not detected 10/28/24 08:00: WBC 8.5, RBC 3.79 L, Hgb 14.1, Hct 42.2, MCV 111.3 H, MCH 37.2 H , MCHC 33.4, RDW 14.6, Plt Count 146, MPV 10.3, Neut % (Auto) 71.9, Lymph % (Auto) 6.1 L, Stewart % (Auto) 21.1 H, Eos % (Auto) 0.0 L, Baso % (Auto) 0.4, Neut # (Auto) 6.1, Lymph # (Auto) 0.5 L, Stewart # (Auto) 1.8 H, Eos # (Auto) 0.0, Baso # (Auto) 0.0, Sodium 143, Potassium 3.2 L, Chloride 107, Carbon Dioxide 28, Anion Gap 11.2, BUN 29 H D, Creatinine 0.60 L D, Estimated Creat Clear 155, Estimated GFR 140, Est GFR ( Amer) 170 D, Glucose 74, Hemoglobin A1c 4.4, Calcium 9.4, Magnesium 1.7 D, Total Bilirubin 2.0 H, AST 72 H D, ALT 48, Alkaline Phosphatase 96, Total Protein 5.6 L, Albumin 3.4 L, Globulin 2.2, Albumin/Globulin Ratio 1.5, TSH 0.89 I & O for Labs for Last 24 Hours: Intake & Output 10/25/24 10/26/24 10/27/24 10/28/24 23:59 23:59 23:59 23:59 Intake Total 3122 / 4022 960 / 960 Output Total 0 / 0 480 / 480 50 / 50 Balance 0 / 1189 2642 / 3542 910 / 910 Weight 162 lb 5 oz 173 lb 1.6 oz 172 lb Microbiology Reports for the Last 24 Hours: Microbiology 10/26/24 15:10 Blood Blood Culture - Preliminary NO GROWTH AFTER 24 HOURS 10/26/24 15:10 Blood Blood Culture - Preliminary NO GROWTH AFTER 24 HOURS Constitutional: Present severe distress Head: Present normocephalic and atraumatic ENT: Present normal exam, normal oropharynx and mucous membranes moist Neck: Present normal inspection and full ROM Respiratory: Present decreased breath sounds, respiratory distress and diminished air movement; Absent wheezes, crackles or able to speak in complete sentences Cardiac: Present S1/S2, Tachycardia and radial pulses present GI: Present soft and distention; Absent tenderness or guarding Skin: Present intact; Absent cyanosis or jaundice Neuro: Present alert and awake; Absent oriented x 3 Extremities: Present normal inspection; Absent clubbing or cyanosis Psychiatric: Present unable to assess Meds Home Medications and Allergies Home Medications ?Medication ?Instructions ?Recorded ?Confirmed ?Type amlodipine 5 mg tablet 10 mg (2 x 5 mg) PO DAILY 30 days 07/09/24 10/26/24 Rx #60 tabs New Prescriptions to Start Prescriptions: Allergies Allergy/AdvReac Type Severity Reaction Status Date / Time No Known Allergies Allergy Verified 10/26/24 15:23 Results Laboratory Findings 10/28/24 08:00 10/28/24 08:00 PT/INR, D-dimer PT 9.7 seconds (9.2-12.1) 10/26/24 15:11 INR 0.87 (0.9-1.1) L 10/26/24 15:11 Abnormal lab findings: Abnormal Labs 10/26/24 10/26/24 10/27/24 15:10 15:11 01:30 WBC 11.5 H RBC 4.13 L Hgb Hct MCV 104.1 H MCH 36.8 H Plt Count MPV 11.8 H Neut % (Auto) 82.7 H Lymph % (Auto) 5.8 L Stewart % (Auto) 10.8 H Eos % (Auto) Neut # (Auto) 9.5 H Lymph # (Auto) Stewart # (Auto) 1.2 H INR 0.87 L APTT 20.1 L Sodium 134 L 132 L Potassium 2.6 L* 2.6 L* Chloride 87 L 91 L Carbon Dioxide 37 H 35 H BUN 53 H 52 H Creatinine 1.30 H Estimated GFR 58 L Glucose 101 H Calcium 12.2 H* Total Bilirubin 2.6 H AST 127 H Total Protein Albumin U Benzodiazepines Scrn 10/27/24 10/27/24 10/28/24 02:00 06:45 08:00 WBC RBC 3.78 L 3.79 L Hgb 14.0 L Hct 40.6 L MCV 107.4 H 111.3 H MCH 37.0 H 37.2 H Plt Count 124 L MPV 11.4 H Neut % (Auto) Lymph % (Auto) 5.5 L 6.1 L Stewart % (Auto) 17.3 H 21.1 H Eos % (Auto) 0.0 L 0.0 L Neut # (Auto) Lymph # (Auto) 0.5 L 0.5 L Stewart # (Auto) 1.5 H 1.8 H INR APTT Sodium Potassium 3.2 L D 3.2 L Chloride 95 L Carbon Dioxide 33 H BUN 50 H 29 H D Creatinine 0.60 L D Estimated GFR Glucose Calcium Total Bilirubin 1.6 H 2.0 H AST 98 H 72 H D Total Protein 5.9 L 5.6 L Albumin 3.4 L U Benzodiazepines Scrn Positive H Assessment and Plan *Assessment and plan (1) Pneumothorax: Status: Acute Category: Medical Code(s): J93.9 - Pneumothorax, unspecified (2) Pneumonia: Status: Acute Category: Medical Code(s): J18.9 - Pneumonia, unspecified organism (3) Acute respiratory failure with hypoxia: Status: Acute Category: Medical Code(s): J96.01 - Acute respiratory failure with hypoxia Plan Mr. Simmons is a 53-year-old male with reported history of alcohol admit presented to ER with generalized weakness and altered mentation. Much of the history is obtained from chart review And upon examination appeared to be in very severe respiratory distress post chest tube dislodgment. 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 Afebrile. Hemodynamically stable. Comprehensive respiratory viral PCR panel negative. Neutrophilic predominant leukocytosis upon admission, improving. Hypokalemia noted upon admission. Chest x-ray upon admission prominent right lower lobe pulmonary airspace disease, improving on follow-up chest x-ray. Other patchy airspace disease noted in the left lingula and right upper lobe. Patient appeared to be having worsening respiratory on this hospital admission, chest x-ray from 10-27-24 morning showed left large pneumothorax s/p left pigtail catheter placement with improvement in pneumothorax. Chest x-ray from this morning pigtail catheter in place, no obvious evidence of pneumothorax. Accidental dislodgment of the pigtail catheter. Immediate follow-up chest x-ray reported not to have any pneumothorax, patient however still needing significantly increased oxygen requirements at this point of time. Pending repeat chest x-ray if not will follow with a CT chest without contrast. Plan: DuoNebs every 4 hours along with Pulmicort Q12 scheduled Continue oxygen supplementation to maintain O2 saturation goal of 90 to 95% Follow with repeat stat chest x-ray Continue Zosyn pending culture results. Will have a low threshold to wean antibiotics.
--- NOTE | 2024-10-28 09:47 | XR_ITS ---
FINAL REPORT TECHNIQUE: Single view chest CLINICAL HISTORY: chest tube displacement COMPARISON: 1 day prior FINDINGS: A single view of the chest was obtained. The heart and mediastinum are within normal limits. There has been interval removal of the left pigtail drainage catheter. There is a small left pleural effusion. Bibasilar markings may represent atelectasis or pneumonia. There is emphysematous change. No pneumothorax is seen. IMPRESSION: Interval removal of left pigtail pleural catheter without pneumothorax. Small left pleural effusion and stable lung disease. Reviewed, Interpreted and Dictated by Micha Navas MD Transcribed by Debra Garcia Authenticated and [facility]
[2024-10-28 10:03] LABS: Ferritin 268 ng/ml (17.9-464)
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
--- NOTE | 2024-10-28 10:18 | PC.NURSE ---
I was notified patient pulled chest tube out. Vaseline gauze and sterile 4x4 placed on insertion site. MD and RT notified and came to bedside. patient b/p elevated at 170s/100s, O2 sats 80%-85%, HR 120s, RR 30. patient appeared tachypneic and restless. non-rebreather placed, O2 sats <95% at this time.
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
[2024-10-28 11:20] LABS: Vitamin B12 > 1000 pg/mL (239-931)
[2024-10-28] MEDS: AMLODIPINE 10MG TABLET 10 MG PO (11:52)
--- NOTE | 2024-10-28 12:19 | XR_ITS ---
FINAL REPORT TECHNIQUE: Single view chest CLINICAL HISTORY: Pneumothorax COMPARISON: Exam performed earlier today. FINDINGS: A single view of the chest was obtained. The heart and mediastinum are within normal limits. There is a left pleural effusion. Bibasilar opacities are stable. There is no pneumothorax. IMPRESSION: Stable bibasilar opacities and left pleural effusion. No definite pneumothorax. Reviewed, Interpreted and Dictated by Micha Navas MD Transcribed by Debra Garcia Authenticated and [facility]
[2024-10-28] MEDS: POTASSIUM CHLORIDE 20MEQ TAB 40 MEQ PO ×2 (12:20→15:57)
[2024-10-28] MEDS: diazePAM 10MG/2ML SYRINGE 5 MG IV (12:45)
[2024-10-28] MEDS: IPRATROPIUM/ALBUTEROL 3 ML NEB IH ×2 (13:01→22:18)
[2024-10-28] MEDS: MULTIVITAMIN TABLET 1 EACH PO (16:00)
--- NOTE | 2024-10-28 16:47 | CT_ITS ---
PROCEDURE INFORMATION: Exam: CTA Chest With Contrast Exam date and time: 10/28/2024 5:48 PM Age: 53 years old Clinical indication: Condition or disease; Lung condition and disease; Hypoxia; Additional info: Persistent hypoxia after pneumothorax resolved TECHNIQUE: Imaging protocol: Computed tomographic angiography of the chest with contrast. Exam focused on the arteries. 3D rendering (Not supervised by radiologist): MIP and/or 3D reconstructed images were created by the technologist. Radiation optimization: All CT scans at this facility use at least one of these dose optimization techniques: automated exposure control; mA and/or kV adjustment per patient size (includes targeted exams where dose is matched to clinical indication); or iterative reconstruction. Contrast material: ISOVUE 370; Contrast volume: 70 ml; Contrast route: INTRAVENOUS (IV); COMPARISON: CR XR CHEST PORTABLE 10/28/2024 12:16 FINDINGS: Tubes, catheters and devices: Left chest wall gas could be related to recently removed thoracostomy tube. Pulmonary arteries: Normal. No pulmonary emboli. Aorta: Unremarkable. No aortic aneurysm. No aortic dissection. Other arteries: Evaluation of the pulmonary arteries is limited to the segmental arterial level due to significant patient motion artifact. Lungs: Scattered ground-glass opacities in mid to lower lungs could be aspiration pneumonitis. Bilateral apical scarring. Moderate centrilobular and paraseptal emphysema. Pleural spaces: Small left pneumothorax. Small to moderate-sized left pleural effusion. Heart: Cardiomegaly. Coronary arteries: Coronary artery calcifications. Lymph nodes: Unremarkable. No enlarged lymph nodes. Diaphragm: There is a small fat containing left diaphragmatic hernia, example image 94 series 1001. Liver: Hepatic steatosis. Stomach: Gastric wall thickening. Bones/joints: Multiple recent left posterolateral and posterior rib fractures. Upper sternal fracture appears to be acute. L2 superior endplate fracture is age indeterminate, but likely acute. Acute, displaced left posterolateral rib fractures involving ribs 8 to 12. There are acute and mildly displaced posterior rib fractures of ribs 8 through 12 as well. There are old bilateral rib fractures. Acute right anterolateral 6th and 7th rib fractures with mild displacement. Possible right anterolateral 8th rib fracture as well. Soft tissues: Unremarkable. IMPRESSION: 1. Evaluation of the pulmonary arteries is limited to the segmental arterial level due to significant patient motion artifact. Within the limitations of the study, no large pulmonary emboli. Small and medium-sized emboli cannot be entirely excluded. 2. There is a small fat containing left diaphragmatic hernia, example image 94 series 1001. This is adjacent to displaced left-sided rib fractures and is most likely acute. 3. Scattered ground-glass opacities in mid to lower lungs could be aspiration pneumonitis. This is less likely infection. 4. Small left pneumothorax. 5. Small to moderate-sized left pleural effusion. 6. Upper sternal fracture appears to be acute. 7. L2 superior endplate fracture is age indeterminate, but likely acute. Please correlate with point tenderness. 8. Acute, displaced left posterolateral rib fractures involving ribs 8 to 12. There are acute and mildly displaced posterior rib fractures of ribs 8 through 12 as well. Please exclude flail chest clinically. 9. Acute right anterolateral 6th and 7th rib fractures with mild displacement. Possible right anterolateral 8th rib fracture as well. 10. Gastric wall thickening. Please exclude gastritis. 11. Hepatic steatosis. 12. THIS REPORT CONTAINS FINDINGS THAT MAY BE CRITICAL TO PATIENT CARE. The findings were verbally communicated via telephone conference with Rios Monique at 6:34 PM EST on 10/28/2024. The findings were acknowledged and understood. COMMENTS: The presence of pulmonary emphysema on CT is an independent risk factor for lung cancer. In the absence of a history or active diagnosis of lung cancer, it is recommended that this patient with emphysema be evaluated for enrollment in a low dose CT lung cancer screening program.
--- NOTE | 2024-10-28 16:53 | ECG_ITS ---
APPROVED REPORT Exam: Resting ECG HR:122 bpm ECG Measurements Heart Rate 122 AXES SC 133 P 50 QRSd 87 QRS 42 QT 416 T 40 QTc 488 Conclusion SINUS TACHYCARDIA WITH OCCASIONAL SUPRAVENTRICULAR PREMATURE COMPLEXES MODERATE T-WAVE ABNORMALITY, CONSIDER ANTEROLATERAL ISCHEMIA [-0.1+ mV T-WAVE IN V3-V6] ABNORMAL ECG UNCONFIRMED REPORT Electronically signed by : Jaxon Ramos MD 10/29/2024 08:05:09
[2024-10-28] MEDS: SODIUM CHLORIDE 0.9% 10ML SYR (RAD ONLY) 10 ML IV (17:49)
[2024-10-28] MEDS: 0.9 % SODIUM CHLORIDE 50 ML VIAL IV (17:49)
[2024-10-28] MEDS: IOPAMIDOL-370 (76%);100ML BOTTLE 70 ML IV (17:49)
--- NOTE | 2024-10-28 18:10 | PEERSUPPORT ---
Peer Support Note Patient Information Patient Information: DOS: 10/28/2024 ? Pt sleeping after given comfort meds. Nurse kamilah stated he had not been able to sleep since his admission or transfer from ICU and very uncomfortable with oxygen mask on. ? Ps will follow up on 10/29/2024. ?
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
--- NOTE | 2024-10-28 20:51 | CT_ITS ---
PROCEDURE INFORMATION: Exam: CT Head Without Contrast Exam date and time: 10/28/2024 10:05 PM Age: 53 years old Clinical indication: Stroke-like symptoms; Altered mental status/memory loss; Additional info: Confusion, memory loss TECHNIQUE: Imaging protocol: Computed tomography of the head without contrast. Radiation optimization: All CT scans at this facility use at least one of these dose optimization techniques: automated exposure control; mA and/or kV adjustment per patient size (includes targeted exams where dose is matched to clinical indication); or iterative reconstruction. Other technique: STROKE PROTOCOL was implemented. COMPARISON: No relevant prior studies available. FINDINGS: Brain: Mild chronic brain volume loss and chronic small vessel ischemic changes. Cerebral ventricles: No ventriculomegaly. Paranasal sinuses: Mild mucosal thickening and small retention cysts in the paranasal sinuses. Mastoid air cells: Visualized mastoid air cells are well aerated. Bones: Age-indeterminate left-sided nasal fracture. Soft tissues: Unremarkable. IMPRESSION: 1. No acute intracranial findings. If there is high clinical concern for acute infarction, consider MRI for further evaluation. 2. Age-indeterminate left-sided nasal fracture. Please correlate with point tenderness to exclude acute fracture. ASSESSMENT: ASPECTS score ([place] Stroke Program Early CT Score) is 10.
[2024-10-28 21:52] LABS: Lactate Venous 1.4 mmol/L (0.4-2.0); VBG Base Excess -2.1 mmol/L (-2.4-2.3); VBG HCO3 20.9 mmol/L (23-30); VBG Oxygen Saturation 98.6 % (50-70); VBG PH 7.51 mmol/L (7.31-7.41); VBG PO2 118.1 mmol/L (28-40); VBG Total CO2 21.7 mmol/L (23-27)
--- NOTE | 2024-10-28 21:58 | PC.NURSE ---
Patient left floor with staff for CT at 21:56.
--- NOTE | 2024-10-28 22:11 | PC.NURSE ---
Patient back from CT at 22:10.
[2024-10-28 22:32] LABS: Lymphocytes % 10 % (10-50); Monocytes % 30 % (2-9); Neutrophils % 60 % (42-76); Total Cells Counted 100
[2024-10-28 22:34] LABS: Platelet Estimate Normal; RBC Morphology Normal
[2024-10-28] MEDS: diazePAM 10MG/2ML SYRINGE 10 MG IV (23:07)
[2024-10-29] VITALS (16 sets, daily range): BP systolic 110–165; BP diastolic 71–116; PULSE 82–130; RESP 20–32; TEMP 36.3–36.8; O2SAT 92–98; BMI 22.8
[2024-10-29] MEDS: diazePAM 10MG/2ML SYRINGE 5 MG IV ×3 (00:15→21:39)
[2024-10-29] MEDS: IPRATROPIUM BROMIDE 0.5 MG/2.5ML SOLUTION IH ×6 (02:14→22:03)
[2024-10-29] MEDS: LEVALBUTEROL 1.25MG/3ML NEB 1.25 MG IH ×6 (02:14→22:03)
[2024-10-29] MEDS: diazePAM 5MG TABLET 5 MG PO ×3 (03:22→17:30)
[2024-10-29] MEDS: PIPERACILLIN/TAZO 4.5 GM in 0.9 % SODIUM CHLORIDE 100 ML IV ×4 (05:36→23:56)
[2024-10-29 06:28] LABS: POC Glucose,Bedside 119 (70-110)
[2024-10-29] MEDS: BUDESONIDE 0.5MG/2ML NEB 0.5 MG IH ×2 (06:38→18:49)
[2024-10-29] MEDS: FOLIC ACID 1MG TABLET 1 MG PO (07:43)
[2024-10-29] MEDS: AMLODIPINE 10MG TABLET 10 MG PO (07:43)
[2024-10-29] MEDS: CARVEDILOL 6.25MG TABLET 6.25 MG PO (07:43)
[2024-10-29] MEDS: ENOXAPARIN 40MG/0.4ML SYRINGE 40 MG SUBCUT (07:44)
--- NOTE | 2024-10-29 07:49 | PC.NURSE ---
2100: Pt. both IV ripped out, Pt. pulling and picking at lines. multiple people tried IV attempts, Iv place left upper arm with US. 2200: IV LUE infiltrated. 2330 New IV finally placed to left AC. pt continues to pull and pick at lines. 0300 Pt. pulled off purewick, bed flooded. New purewick applied, pt. cleaned up and bed changed. 0500 Pt. would not keep property assessment monitor in place, repeatedly pulled off monitor and sat probe. [place] ok to leave off for now. HR 107. pulse ox 95% RA. 0530: Pt. climbed out of bed to chair. was 1/2 in chair and 1/2 out of chair. Pt. pulled up in chair an dchair alarm in place. . 0600: Pt. assisted back to bed, pulled wrapping off IV line. CIWA 12 5 mg IV valium given.
[2024-10-29 08:07] LABS: Basophils % 0.2 % (0.1-2.0); Eosinophils % 0.4 % (0.1-12.0); Hematocrit 41.2 % (42.0-52.0); Hemoglobin 13.8 g/dL (14.1-18.0); Lymphocytes # 0.8 K/mm3 (0.7-4.5); Lymphocytes % 8.5 % (10-50); Mean Corpuscular HGB Conc 33.5 g/dL (31.8-35.4); Mean Corpuscular Hemoglobin 36.8 pg (27.0-31.2); Mean Corpuscular Volume 109.9 fl (80-94); Mean Platelet Volume 10.3 fl (7.4-10.4); Monocytes # 1.9 K/mm3 (0.1-1.0); Monocytes % 19.5 % (1.7-9.3); Neutrophils # 6.7 K/mm3 (1.8-7.8); Platelet Count 219 K/mm3 (142-424); Red Blood Count 3.75 M/mm3 (4.60-6.20); Red Cell Distribution Width 14.4 % (11.5-17.5); White Blood Count 9.5 K/mm3 (4.8-10.8)
[2024-10-29 08:44] LABS: Alanine Aminotransferase 44 U/L (12-78); Albumin Level 3.3 g/dl (3.5-5.0); Albumin/Globulin Ratio 1.6 (1.1-1.8); Alkaline Phosphatase 93 U/L (38-126); Anion Gap 13.1 mEq/L (5-15); Aspartate Amino Transferase 65 U/L (17-59); Bilirubin,Total 1.8 mg/dl (0.2-1.3); Blood Urea Nitrogen 16 mg/dl (9-20); Calcium 8.8 mg/dl (8.4-10.2); Carbon Dioxide 23 mmol/L (22.0-30.0); Chloride 113 mmol/L (98-107); Creatinine Clearance Estimated 186 mL/min (50-200); Estimated Glomerular Filt Rate 173 ml/min (>60); GFR (African American) 210 ML/MIN (>60); Globulin 2.1 g/dL (1.3-3.2); Glucose 104 mg/dl (74-100); Magnesium 1.4 mg/dl (1.6-2.3); Potassium 3.1 mmoL/L (3.5-5.1); Sodium 146 mmol/L (136-145); Total Protein,Serum 5.4 g/dl (6.3-8.2)
--- NOTE | 2024-10-29 09:25 | EXP.PULM.PN ---
Subjective *Date: 10/29/24 *Time: 10:31 Interval history: No acute respiratory vents overnight. Improving oxygen requirements. Pulmonology Exam Inpatient Vital signs and Labs for Last 24 Hours: Temp Pulse Resp BP Pulse Ox O2 Del Method O2 Flow Rate 97.8 F 130 H 28 H 122/81 96 Nasal Cannula 2 10/29/24 08:00 10/29/24 08:00 10/29/24 08:00 10/29/24 08:00 10/29/24 08:00 10/29/24 08:47 10/29/24 08:47 Laboratory Results - last 24 hr 10/28/24 08:00: Total Counted 100, Neutrophils % (Manual) 60, Lymphocytes % (Manual) 10, Monocytes % (Manual) 30 H, Platelet Estimate Normal, RBC Morphology Normal, Hemoglobin A1c 4.4, Ferritin 268, Vitamin B12 > 1000 H 10/28/24 20:54: VBG pH 7.51 H, VBG pCO2 27.0 L, VBG pO2 118.1 H, VBG HCO3 20.9 L, VBG Total CO2 21.7 L, VBG O2 Saturation 98.6 H, VBG Base Excess -2.1, VBG Lactic Acid 1.4 10/29/24 06:04: POC Glucose 119 H 10/29/24 08:00: WBC 9.5, RBC 3.75 L, Hgb 13.8 L, Hct 41.2 L, MCV 109.9 H, MCH 36.8 H, MCHC 33.5, RDW 14.4, Plt Count 219 D, MPV 10.3, Neut % (Auto) 71.0, Lymph % (Auto) 8.5 L, [place] % (Auto) 19.5 H, Eos % (Auto) 0.4, Baso % (Auto) 0.2, Neut # (Auto) 6.7, Lymph # (Auto) 0.8, [place] # (Auto) 1.9 H, Eos # (Auto) 0.0, Baso # (Auto) 0.0, Sodium 146 H, Potassium 3.1 L, Chloride 113 H, Carbon Dioxide 23, Anion Gap 13.1, BUN 16 D, Creatinine 0.50 L, Estimated Creat Clear 186, Estimated GFR 173, Est GFR ( Amer) 210 D, Glucose 104 H D, Calcium 8.8, Magnesium 1.4 L D, Total Bilirubin 1.8 H, AST 65 H, ALT 44, Alkaline Phosphatase 93, Total Protein 5.4 L, Albumin 3.3 L, Globulin 2.1, Albumin/Globulin Ratio 1.6 Temp Pulse Resp BP Pulse Ox O2 Del Method O2 Flow Rate 98.4 F 84 18 170/119 H 94 L Nasal Cannula 2 10/28/24 07:31 10/28/24 07:31 10/28/24 07:31 10/28/24 07:33 10/28/24 07:31 10/28/24 07:31 10/28/24 07:31 Laboratory Results - last 24 hr 10/27/24 18:30: Chlamy pneumoniae PCR Not detected, Adenovirus (PCR) Not detected, B. pertussis DNA (PCR) Not detected, Coronavirus OC43 (PCR) Not detected, Coronavirus HKU1 (PCR) Not detected, Coronavirus 229E (PCR) Not detected, SARS-CoV-2 (PCR) Not detected, Coronavirus NL63 (PCR) Not detected, Human Metapneumovir PCR Not detected, Influenza A (H1) PCR Not detected, Influ A (H1N1/09) PCR Not detected, Influenza A (H3) PCR Not detected, Influenza Type A (PCR) Not detected, Influenza Type B (PCR) Not detected, M. pneumoniae (PCR) Not detected, Parainfluenza 1 (PCR) Not detected, Parainfluenza 2 (PCR) Not detected, Parainfluenza 3 (PCR) Not detected, Parainfluenza 4 (PCR) Not detected, RSV (PCR) Not detected, Entero/Rhino (PCR) Not detected 10/28/24 08:00: WBC 8.5, RBC 3.79 L, Hgb 14.1, Hct 42.2, MCV 111.3 H, MCH 37.2 H, MCHC 33.4, RDW 14.6, Plt Count 146, MPV 10.3, Neut % (Auto) 71.9, Lymph % (Auto) 6.1 L, [place] % (Auto) 21.1 H, Eos % (Auto) 0.0 L, Baso % (Auto) 0.4, Neut # (Auto) 6.1, Lymph # (Auto) 0.5 L, [place] # (Auto) 1.8 H, Eos # (Auto) 0.0, Baso # (Auto) 0.0, Sodium 143, Potassium 3.2 L, Chloride 107, Carbon Dioxide 28, Anion Gap 11.2, BUN 29 H D, Creatinine 0.60 L D, Estimated Creat Clear 155, Estimated GFR 140, Est GFR ( Amer) 170 D, Glucose 74, Hemoglobin A1c 4.4, Calcium 9.4, Magnesium 1.7 D, Total Bilirubin 2.0 H, AST 72 H D, ALT 48, Alkaline Phosphatase 96, Total Protein 5.6 L, Albumin 3.4 L, Globulin 2.2, Albumin/Globulin Ratio 1.5, TSH 0.89 I & O for Labs for Last 24 Hours: Intake & Output 10/26/24 10/27/24 10/28/24 10/29/24 23:59 23:59 23:59 23:59 Intake Total 3122 / 4022 1300 / 1700 520 / 520 Output Total 0 / 0 480 / 480 50 / 50 650 / 650 Balance 0 / 1189 2642 / 3542 1250 / 1650 -130 / -130 Weight 162 lb 5 oz 173 lb 1.6 oz 171 lb 15.369 oz 171 lb 15.369 oz Intake & Output 10/25/24 10/26/24 10/27/24 10/28/24 23:59 23:59 23:59 23:59 Intake Total 3122 / 4022 960 / 960 Output Total 0 / 0 480 / 480 50 / 50 Balance 0 / 1189 2642 / 3542 910 / 910 Weight 162 lb 5 oz 173 lb 1.6 oz 172 lb Microbiology Reports for the Last 24 Hours: Microbiology 10/26/24 15:10 Blood Blood Culture - Preliminary NO GROWTH AFTER 48 HOURS 10/26/24 15:10 Blood Blood Culture - Preliminary NO GROWTH AFTER 48 HOURS 10/26/24 19:25 Anus CRE Surveillance Culture - Final Negative Microbiology 10/26/24 15:10 Blood Blood Culture - Preliminary NO GROWTH AFTER 24 HOURS 10/26/24 15:10 Blood Blood Culture - Preliminary NO GROWTH AFTER 24 HOURS Constitutional: Present severe distress Head: Present normocephalic and atraumatic ENT: Present normal exam, normal oropharynx and mucous membranes moist Neck: Present normal inspection and full ROM Respiratory: Present decreased breath sounds and respiratory distress; Absent wheezes, crackles or able to speak in complete sentences Cardiac: Present S1/S2, Tachycardia and radial pulses present GI: Present soft and distention; Absent tenderness or guarding Skin: Present intact; Absent cyanosis or jaundice Neuro: Present awake; Absent alert or oriented x 3 Extremities: Present normal inspection; Absent clubbing or cyanosis Psychiatric: Present unable to assess Assessment and Plan *Assessment and plan (1) Pneumothorax: Status: Acute Category: Medical Code(s): J93.9 - Pneumothorax, unspecified (2) Pneumonia: Status: Acute Category: Medical Code(s): J18.9 - Pneumonia, unspecified organism (3) Acute respiratory failure with hypoxia: Status: Acute Category: Medical Code(s): J96.01 - Acute respiratory failure with hypoxia Plan Mr. Simmons is a 53-year-old male with reported history of alcohol admit presented to ER with generalized weakness and altered mentation. Much of the history is obtained from chart review And upon examination appeared to be in very severe respiratory distress post chest tube dislodgment. 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 Afebrile. Hemodynamically stable. Comprehensive respiratory viral PCR panel negative. Neutrophilic predominant leukocytosis upon admission, improving. Hypokalemia noted upon admission. Chest x-ray upon admission prominent right lower lobe pulmonary airspace disease, improving on follow-up chest x-ray. Other patchy airspace disease noted in the left lingula and right upper lobe. Patient appeared to be having worsening respiratory on this hospital admission, chest x-ray from 10-27-24 morning showed left large pneumothorax s/p left pigtail catheter placement with improvement in pneumothorax. Chest x-ray from this morning pigtail catheter in place, no obvious evidence of pneumothorax. Accidental dislodgment of the pigtail catheter. Immediate follow-up chest x-ray reported not to have any pneumothorax, patient however still needing significantly increased oxygen requirements at this point of time. Repeat chest x-ray did not reported to have any evidence pneumothorax. Interval update: CT chest small left apical pneumothorax. Small left pleural effusion along with adjacent atelectasis. Bilateral lower lobe airspace disease. Multiple displaced rib fractures. Adjacent pulmonary contusion. Suboptimal study, no obvious evidence of central pulmonary embolism. Continue to receive live albuterol/ipratropium every 4 hours along with Pulmicort every 12 and Zosyn. Serum ammonia within normal limits. Appeared lethargic, responding appropriately to verbal commands. Plan: Continue levalbuterol and ipratropium 4 hours along with Pulmicort Q12 scheduled Continue oxygen supplementation to maintain O2 saturation goal of 90 to 95% Continue Zosyn pending culture results. Continue oxygen supplementation to maintain O2 saturation goal of 90% and
[2024-10-29] MEDS: POTASSIUM CHLORIDE 20MEQ TAB 40 MEQ PO ×3 (09:51→16:47)
[2024-10-29] MEDS: MAGNESIUM SULFATE IN WATER 2 GM/50 ML PIGGYBACK IV ×3 (09:51→11:54)
[2024-10-29 10:47] LABS: ABG Base Excess 0.7 mmol/L (-2.4-2.3); ABG Oxygen Saturation 85 % (90-100); ABG PCO2 26.6 mmhg (35.0-45.0); ABG TCO2 23.8 mmhg (23-27); Lactate Arterial 1.1 mmol/L (0.4-2.0)
[2024-10-29 10:49] LABS: Allen's Test Acceptable; Oxygen 2 LPM %; Source Right Brachial
[2024-10-29 10:53] LABS: ABG PH 7.55 mmol/L (7.35-7.45); ABG PO2 47.7 mmhg (80-100)
[2024-10-29 11:02] LABS: Ammonia < 9 umol/L (9-30)
--- NOTE | 2024-10-29 12:49 | XR_ITS ---
FINAL REPORT TECHNIQUE: Single view chest CLINICAL HISTORY: pneumo COMPARISON: CT performed 1 day prior FINDINGS: A single view of the chest was obtained. The heart is mildly enlarged. There is a moderate left pleural effusion. Bibasilar opacities are again seen suspicious for pneumonia. There is a moderate left pneumothorax which has significantly increased from prior exam. Pleural separation previously measured 6 mm, now measures 36 mm. There is no mediastinal shift. Low IMPRESSION: Significant increase of left pneumothorax. Reviewed, Interpreted and Dictated by Micha Navas MD Transcribed by Debra Garcia Authenticated and [facility]
[2024-10-29] MEDS: KETOROLAC 30MG/ML VIAL 15 MG IV ×2 (13:08→18:18)
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
[2024-10-29] MEDS: MULTIVITAMIN TABLET 1 EACH PO (16:47)
[2024-10-29 16:48] LABS: Chloride 112 mmol/L (98-107); Potassium 3.4 mmoL/L (3.5-5.1); Sodium 143 mmol/L (136-145)
[2024-10-29 16:51] LABS: Anion Gap 8.4 mEq/L (5-15); Blood Urea Nitrogen 20 mg/dl (9-20); Calcium 8.3 mg/dl (8.4-10.2); Carbon Dioxide 26 mmol/L (22.0-30.0); Creatinine Clearance Estimated 133 mL/min (50-200); Estimated Glomerular Filt Rate 118 ml/min (>60); GFR (African American) 142 ML/MIN (>60); Glucose 118 mg/dl (74-100)
[2024-10-29] MEDS: NICOTINE 21MG/24HR PATCH 21 MG TD (17:31)
--- NOTE | 2024-10-29 18:14 | XR_ITS ---
PROCEDURE INFORMATION: Exam: XR Chest Exam date and time: 10/29/2024 6:05 PM Age: 53 years old Clinical indication: Device placement; Chest tube; Additional info: Chest tube placement TECHNIQUE: Imaging protocol: Radiologic exam of the chest. Views: 1 view. COMPARISON: CR XR CHEST PORTABLE 10/29/2024 1:50 PM FINDINGS: Tubes, catheters and devices: Status post left pigtail thoracostomy drain placement, silhouettes the left lower lobe. Lungs: Unremarkable. No consolidation. Pleural spaces: Residual pneumothorax is seen at the left apex measuring up to 2.8 cm. Perhaps small/miniscule residual pleural fluid is seen at the left costophrenic angle. Heart/Mediastinum: Cardiomegaly. Bones/joints: Unremarkable. Gastrointestinal tract: Air dilated loops of bowel. IMPRESSION: 1. Status post left pigtail thoracostomy drain placement, silhouettes the left lower lobe. 2. Residual pneumothorax is seen with 2.8 cm of air gap, perhaps miniscule residual pleural fluid is noted of the left costophrenic angle. 3. Air dilated loops of bowel, correlate clinically with underlying ileus/obstruction.
--- NOTE | 2024-10-29 18:14 | PC.NURSE ---
Aox 1 with confusion, 02-2L NC sats at 94%, turn very two hours, 20g L UA SL, purewick in place, new chest tube placed at 18:16 left side, bed alarm active, mittens placed, pt on ciwa's.
--- NOTE | 2024-10-29 18:27 | P.EN_ITS ---
I was asked to place a chest tube by Dr. Anguiano. for recurrence of L sided pneumothorax. I independently visualized the x-ray myself and noted left-sided pneumothorax. This was confirmed with radiology read. Consent obtained by nursing from surrogate decision maker given the patient does not have capacity. At request of hospitalist, I elected to place a 14 Macedonian Marcelino catheter in the left chest. Procedure note: Left thoracostomy tube placement. Landmarks visualized with bedside ultrasound as well as palpated to go in the fifth intercostal space of the left anterior axillary line. Area was prepped sterilely with chlorhexidine. Sterile drapes placed, and I donned with sterile gloves and a sterile gown. 10 cc of 1% lidocaine without epinephrine was injected into the left chest wall with negative aspiration for blood. After this, when catheter acute was used to place when catheter in the left chest wall using Seldinger technique. Needle was placed in the left chest with syringe aspirating small amount of serosanguineous fluid as well as air. Needle was stabilized, and introducing wire was introduced into the left chest cavity. Needle was removed, scalpel was used to make a small incision at the site of the guidewire, and the Marcelino catheter apparatus was introduced over the guidewire. The when catheter was sutured in place, it was connected to Pleur-evac suction with good tidaling. Minimal serosanguineous fluid removed from left chest cavity. I independently interpreted post chest tube placement chest x-ray and noted satisfactory placement of Marcelino catheter. Please radiology read for final interpretation. Patient tolerated the procedure well with no complications.
--- NOTE | 2024-10-29 18:29 | PEERSUPPORT ---
Peer Support Note Patient Information Patient Information: DOS: 10/29/2024 Reason: ETOH/AUD ? Ps consult initial encounter. ? Pt alert and oriented today, he is understanding and receptive to the role of peer support offering recovery focused support. Pt having difficulties speaking clearly, ps able to make out what he is saying. ? Parents at bedside, very supportive and receptive to peer support for family driven approach to pts current state. ? Pt becomes more engaging, and request a cup of coffee following ps introduction. ? Ps advocated for pt for approval of coffee and request for nicotine patch with FRANCISCO Molina. ? Nurse and tech assist with repositioning in bed, as patient wants to set up. ? Ps encouraged self-advocacy through healthy communication with providers and nurses for understanding of state of health as well as treatment. ? Pt and parents of pt both understanding and express gratitude. ? Ps affirms patient of support and compassion through process of recovery briefly? encouraging pt to focus on physical state and safety of his health accepting help of nurses and providers in order to become well and gaining strength. Pt and pts parents understanding of procedures and process explained by Dr Anguiano. Potential Barriers: Pts parents stated he does have court on 10/31/2024 for DUI in [facility]. [Ps will facilitate phone call to private erisa attorney to make courts aware of being hospitalized] ? Pt has credit card bills due. ?Ps will connect patient with outpatient care that offers case management services that will assist him with financial responsibilities. ? Lack of recovery connection: Ps will continue to build rapport with pt discussing treatment referrals and options. ? Plan of action: Practice mindful breathing as practiced with ps at bedside. Dr. Shreya Fiore to insert chest tube, Dr. Anguiano to follow up. Ps to follow up with pt on 10/30/2024.
[2024-10-29] MEDS: MORPHINE 4MG/ML SYRINGE 4 MG IV (19:40)
[2024-10-30] VITALS (13 sets, daily range): BP systolic 108–138; BP diastolic 73–97; PULSE 56–104; RESP 17–22; TEMP 36.6–37.1; O2SAT 94–99; BMI 23.6
[2024-10-30] MEDS: KETOROLAC 30MG/ML VIAL 15 MG IV ×4 (00:31→19:55)
[2024-10-30] MEDS: MORPHINE 4MG/ML SYRINGE 4 MG IV (01:11)
[2024-10-30] MEDS: IPRATROPIUM BROMIDE 0.5 MG/2.5ML SOLUTION IH ×6 (01:55→22:48)
[2024-10-30] MEDS: LEVALBUTEROL 1.25MG/3ML NEB 1.25 MG IH ×6 (01:55→22:48)
--- NOTE | 2024-10-30 06:00 | XR_ITS ---
PROCEDURE INFORMATION: Exam: XR Chest Exam date and time: 10/30/2024 5:34 AM Age: 53 years old Clinical indication: Device placement; Chest tube; Additional info: Pneumothorax TECHNIQUE: Imaging protocol: Radiologic exam of the chest. Views: 1 view. COMPARISON: CR XR CHEST PORTABLE 10/29/2024 6:05 PM FINDINGS: Tubes, catheters and devices: Left pigtail thoracostomy drain layering over the hemidiaphragm similar to prior comparison. Lungs: Interval increase in ill-defined opacities of the right lower lobe. COPD changes of the lung apices. Pleural spaces: Unremarkable. No pleural effusion. No pneumothorax. Heart/Mediastinum: Unremarkable. No cardiomegaly. Bones/joints: Unremarkable. IMPRESSION: 1. Stable thoracostomy drain as above. 2. Infiltrates of the right lower lobe appear more prominent from previous 24 hours.
[2024-10-30] MEDS: PIPERACILLIN/TAZO 4.5 GM in 0.9 % SODIUM CHLORIDE 100 ML IV ×2 (06:14→12:00)
[2024-10-30] MEDS: BUDESONIDE 0.5MG/2ML NEB 0.5 MG IH ×2 (06:23→18:53)
[2024-10-30 06:24] LABS: Basophils % 0.3 % (0.1-2.0); Eosinophils # 0.1 K/mm3 (0.0-0.4); Eosinophils % 1.1 % (0.1-12.0); Hematocrit 39.9 % (42.0-52.0); Hemoglobin 13.1 g/dL (14.1-18.0); Lymphocytes # 1.1 K/mm3 (0.7-4.5); Lymphocytes % 14.1 % (10-50); Mean Corpuscular HGB Conc 32.8 g/dL (31.8-35.4); Mean Corpuscular Hemoglobin 36.8 pg (27.0-31.2); Mean Corpuscular Volume 112.1 fl (80-94); Mean Platelet Volume 10.2 fl (7.4-10.4); Monocytes # 1.1 K/mm3 (0.1-1.0); Monocytes % 13.9 % (1.7-9.3); Neutrophils # 5.6 K/mm3 (1.8-7.8); Neutrophils % 70.1 % (37.0-80.0); Platelet Count 260 K/mm3 (142-424); Red Blood Count 3.56 M/mm3 (4.60-6.20); Red Cell Distribution Width 14.6 % (11.5-17.5); White Blood Count 7.9 K/mm3 (4.8-10.8)
[2024-10-30 07:05] LABS: Alanine Aminotransferase 40 U/L (12-78); Albumin Level 3.1 g/dl (3.5-5.0); Albumin/Globulin Ratio 1.2 (1.1-1.8); Alkaline Phosphatase 97 U/L (38-126); Anion Gap 7.5 mEq/L (5-15); Aspartate Amino Transferase 50 U/L (17-59); Bilirubin,Total 0.9 mg/dl (0.2-1.3); Blood Urea Nitrogen 26 mg/dl (9-20); Calcium 8.2 mg/dl (8.4-10.2); Carbon Dioxide 25 mmol/L (22.0-30.0); Chloride 115 mmol/L (98-107); Creatinine Clearance Estimated 138 mL/min (50-200); Estimated Glomerular Filt Rate 118 ml/min (>60); GFR (African American) 142 ML/MIN (>60); Globulin 2.5 g/dL (1.3-3.2); Glucose 107 mg/dl (74-100); Magnesium 2.3 mg/dl (1.6-2.3); Potassium 3.5 mmoL/L (3.5-5.1); Sodium 144 mmol/L (136-145); Total Protein,Serum 5.6 g/dl (6.3-8.2)
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
--- NOTE | 2024-10-30 08:14 | P.PN_ITS ---
Subjective *Date: 10/30/24 *Time: 08:14 Medical Exam Vital signs and Labs for Last 24 Hours: Vital Signs Temp Pulse Pulse Resp BP Pulse Ox O2 Del Method 10/30/24 08:00 98.2 F 104 H 17 133/97 H 99 10/30/24 06:40 Room Air 10/30/24 06:23 86 10/30/24 06:23 93 H 10/30/24 06:23 94 L Nasal Cannula 10/30/24 05:00 Room Air 10/30/24 04:00 98.7 F 103 H 17 125/85 94 L Nasal Cannula 10/30/24 03:00 Room Air 10/30/24 02:15 82 10/30/24 02:04 83 10/30/24 01:00 Room Air 10/30/24 00:00 98.5 F 102 H 19 124/92 H 95 Nasal Cannula 10/29/24 23:00 Room Air 10/29/24 22:20 83 10/29/24 22:00 82 10/29/24 21:00 Nasal Cannula 10/29/24 20:00 Nasal Cannula 10/29/24 20:00 98.3 F 97 H 20 112/77 97 Nasal Cannula 10/29/24 19:36 Nasal Cannula 10/29/24 19:35 84 10/29/24 18:45 83 10/29/24 17:25 Nasal Cannula 10/29/24 16:00 98.1 F 94 H 32 H 110/76 97 Nasal Cannula 10/29/24 16:00 Nasal Cannula 10/29/24 14:26 87 10/29/24 14:26 88 10/29/24 14:08 Nasal Cannula 10/29/24 12:58 Nasal Cannula 10/29/24 11:49 97.4 F L 98 H 24 113/71 95 Nasal Cannula 10/29/24 11:10 92 L Nasal Cannula 10/29/24 10:21 Nasal Cannula 10/29/24 08:47 Nasal Cannula O2 Flow Rate FiO2 10/30/24 08:00 10/30/24 06:40 10/30/24 06:23 10/30/24 06:23 10/30/24 06:23 3 10/30/24 05:00 10/30/24 04:00 2 10/30/24 03:00 10/30/24 02:15 10/30/24 02:04 10/30/24 01:00 10/30/24 00:00 3 10/29/24 23:00 10/29/24 22:20 10/29/24 22:00 10/29/24 21:00 3 10/29/24 20:00 3 10/29/24 20:00 3 10/29/24 19:36 3 32 10/29/24 19:35 10/29/24 18:45 10/29/24 17:25 2 10/29/24 16:00 3 10/29/24 16:00 2 10/29/24 14:26 10/29/24 14:26 10/29/24 14:08 2 10/29/24 12:58 2 10/29/24 11:49 3 10/29/24 11:10 3 10/29/24 10:21 2 10/29/24 08:47 2 Intake and Output 10/29/24 10/30/24 10/30/24 23:59 07:59 15:59 Intake Total 200 / 1500 Output Total 100 / 1050 100 / 100 Balance 100 / 450 -100 / -100 Intake: Intake, Oral Amount 200 / 800 Output: Output, Urine Amount 100 / 1050 100 / 100 Other: Weight 80.603 kg Patient Weight 10/30/24 23:59 Weight 80.603 kg Laboratory Results - last 24 hr 10/29/24 08:00: Sodium 146 H, Potassium 3.1 L, Chloride 113 H, Carbon Dioxide 23, Anion Gap 13.1, BUN 16 D, Creatinine 0.50 L, Estimated Creat Clear 186, Estimated GFR 173, Est GFR ( Amer) 210 D, Glucose 104 H D, Calcium 8.8, Magnesium 1.4 L D, Total Bilirubin 1.8 H, AST 65 H, ALT 44, Alkaline Phosphatase 93, Total Protein 5.4 L, Albumin 3.3 L, Globulin 2.1, Albumin/Globulin Ratio 1.6 10/29/24 10:31: Specimen Source Right brachial, O2 % 2 lpm, ABG pH 7.55 H, ABG pCO2 26.6 L, ABG pO2 47.7 L, ABG HCO3 23.0, ABG Total CO2 23.8, ABG O2 Saturation 85 L*, ABG Base Excess 0.7, Eric Test Acceptable, ABG Lactate 1.1 10/29/24 10:39: Ammonia < 9 L 10/29/24 16:12: Sodium 143, Potassium 3.4 L, Chloride 112 H, Carbon Dioxide 26, Anion Gap 8.4, BUN 20, Creatinine 0.70 D, Estimated Creat Clear 133, Estimated GFR 118, Est GFR ( Amer) 142 D, Glucose 118 H, Calcium 8.3 L 10/30/24 06:01: WBC 7.9, RBC 3.56 L, Hgb 13.1 L, Hct 39.9 L, MCV 112.1 H, MCH 36.8 H, MCHC 32.8, RDW 14.6, Plt Count 260, MPV 10.2, Neut % (Auto) 70.1, Lymph % (Auto) 14.1, [place] % (Auto) 13.9 H, Eos % (Auto) 1.1, Baso % (Auto) 0.3, Neut # (Auto) 5.6, Lymph # (Auto) 1.1, [place] # (Auto) 1.1 H, Eos # (Auto) 0.1, Baso # (Auto) 0.0, Sodium 144, Potassium 3.5, Chloride 115 H, Carbon Dioxide 25, Anion Gap 7.5, BUN 26 H D, Creatinine 0.70, Estimated Creat Clear 138, Estimated GFR 118, Est GFR ( Amer) 142, Glucose 107 H, Calcium 8.2 L, Magnesium 2.3 D, Total Bilirubin 0.9, AST 50, ALT 40, Alkaline Phosphatase 97, Total Protein 5.6 L, Albumin 3.1 L, Globulin 2.5, Albumin/Globulin Ratio 1.2 I & O for Labs for Last 24 Hours: Intake & Output 10/27/24 10/28/24 10/29/24 10/30/24 23:59 23:59 23:59 23:59 Intake Total 3122 / 4022 1300 / 1700 1500 / 1500 Output Total 480 / 480 50 / 50 1050 / 1050 100 / 100 Balance 2642 / 3542 1250 / 1650 450 / 450 -100 / -100 Weight 78.517 kg 78 kg 78 kg 80.603 kg Microbiology Reports for the Last 24 Hours: Microbiology 10/29/24 19:30 Pleural Fluid Gram Stain - Final The patient's infection will respond to the chosen ABx?: Yes (PLEURAL FLUID PENDING, BLOOD CX NO GROWTH AT 48 HR, AFEBRILE OVER 24 HR) Is the patient receiving the right drug, dose, and route?: Yes Could a more targeted ABx be ordered?: No
[2024-10-30] MEDS: SODIUM CHLORIDE 3% 15ML NEB 3 ML IH (08:37)
[2024-10-30] MEDS: POTASSIUM CHLORIDE 20MEQ TAB 40 MEQ PO ×2 (08:44→12:00)
[2024-10-30] MEDS: CARVEDILOL 6.25MG TABLET 6.25 MG PO ×2 (08:44→20:23)
[2024-10-30] MEDS: FOLIC ACID 1MG TABLET 1 MG PO (08:44)
[2024-10-30] MEDS: AMLODIPINE 10MG TABLET 10 MG PO (08:44)
[2024-10-30] MEDS: ENOXAPARIN 40MG/0.4ML SYRINGE 40 MG SUBCUT (08:45)
--- NOTE | 2024-10-30 09:39 | EXP.PULM.PN ---
Subjective *Date: 10/30/24 *Time: 11:37 Interval history: Patient admits improvement in his respiratory distress. Improved mentation. Pulmonology Exam Inpatient Vital signs and Labs for Last 24 Hours: Temp Pulse Resp BP Pulse Ox O2 Del Method O2 Flow Rate 98.2 F 80 17 133/97 H 99 Nasal Cannula 3 10/30/24 08:00 10/30/24 09:27 10/30/24 08:00 10/30/24 08:00 10/30/24 08:00 10/30/24 08:00 10/30/24 08:00 FiO2 32 10/29/24 19:36 Laboratory Results - last 24 hr 10/29/24 10:31: Specimen Source Right brachial, O2 % 2 lpm, ABG pH 7.55 H, ABG pCO2 26.6 L, ABG pO2 47.7 L, ABG HCO3 23.0, ABG Total CO2 23.8, ABG O2 Saturation 85 L*, ABG Base Excess 0.7, Eric Test Acceptable, ABG Lactate 1.1 10/29/24 10:39: Ammonia < 9 L 10/29/24 16:12: Sodium 143, Potassium 3.4 L, Chloride 112 H, Carbon Dioxide 26, Anion Gap 8.4, BUN 20, Creatinine 0.70 D, Estimated Creat Clear 133, Estimated GFR 118, Est GFR ( Amer) 142 D, Glucose 118 H, Calcium 8.3 L 10/30/24 06:01: WBC 7.9, RBC 3.56 L, Hgb 13.1 L, Hct 39.9 L, MCV 112.1 H, MCH 36.8 H, MCHC 32.8, RDW 14.6, Plt Count 260, MPV 10.2, Neut % (Auto) 70.1, Lymph % (Auto) 14.1, [place] % (Auto) 13.9 H, Eos % (Auto) 1.1, Baso % (Auto) 0.3, Neut # (Auto) 5.6, Lymph # (Auto) 1.1, [place] # (Auto) 1.1 H, Eos # (Auto) 0.1, Baso # (Auto) 0.0, Sodium 144, Potassium 3.5, Chloride 115 H, Carbon Dioxide 25, Anion Gap 7.5, BUN 26 H D, Creatinine 0.70, Estimated Creat Clear 138, Estimated GFR 118, Est GFR ( Amer) 142, Glucose 107 H, Calcium 8.2 L, Magnesium 2.3 D, Total Bilirubin 0.9, AST 50, ALT 40, Alkaline Phosphatase 97, Total Protein 5.6 L, Albumin 3.1 L, Globulin 2.5, Albumin/Globulin Ratio 1.2 Temp Pulse Resp BP Pulse Ox O2 Del Method O2 Flow Rate 98.4 F 84 18 170/119 H 94 L Nasal Cannula 2 10/28/24 07:31 10/28/24 07:31 10/28/24 07:31 10/28/24 07:33 10/28/24 07:31 10/28/24 07:31 10/28/24 07:31 Laboratory Results - last 24 hr 10/27/24 18:30: Chlamy pneumoniae PCR Not detected, Adenovirus (PCR) Not detected, B. pertussis DNA (PCR) Not detected, Coronavirus OC43 (PCR) Not detected, Coronavirus HKU1 (PCR) Not detected, Coronavirus 229E (PCR) Not detected, SARS-CoV-2 (PCR) Not detected, Coronavirus NL63 (PCR) Not detected, Human Metapneumovir PCR Not detected, Influenza A (H1) PCR Not detected, Influ A (H1N1/09) PCR Not detected, Influenza A (H3) PCR Not detected, Influenza Type A (PCR) Not detected, Influenza Type B (PCR) Not detected, M. pneumoniae (PCR) Not detected, Parainfluenza 1 (PCR) Not detected, Parainfluenza 2 (PCR) Not detected, Parainfluenza 3 (PCR) Not detected, Parainfluenza 4 (PCR) Not detected, RSV (PCR) Not detected, Entero/Rhino (PCR) Not detected 10/28/24 08:00: WBC 8.5, RBC 3.79 L, Hgb 14.1, Hct 42.2, MCV 111.3 H, MCH 37.2 H, MCHC 33.4, RDW 14.6, Plt Count 146, MPV 10.3, Neut % (Auto) 71.9, Lymph % (Auto) 6.1 L, [place] % (Auto) 21.1 H, Eos % (Auto) 0.0 L, Baso % (Auto) 0.4, Neut # (Auto) 6.1, Lymph # (Auto) 0.5 L, [place] # (Auto) 1.8 H, Eos # (Auto) 0.0, Baso # (Auto) 0.0, Sodium 143, Potassium 3.2 L, Chloride 107, Carbon Dioxide 28, Anion Gap 11.2, BUN 29 H D, Creatinine 0.60 L D, Estimated Creat Clear 155, Estimated GFR 140, Est GFR ( Amer) 170 D, Glucose 74, Hemoglobin A1c 4.4, Calcium 9.4, Magnesium 1.7 D, Total Bilirubin 2.0 H, AST 72 H D, ALT 48, Alkaline Phosphatase 96, Total Protein 5.6 L, Albumin 3.4 L, Globulin 2.2, Albumin/Globulin Ratio 1.5, TSH 0.89 I & O for Labs for Last 24 Hours: Intake & Output 10/27/24 10/28/24 10/29/24 10/30/24 23:59 23:59 23:59 23:59 Intake Total 3122 / 4022 1300 / 1700 1500 / 1500 500 / 500 Output Total 480 / 480 50 / 50 1050 / 1050 100 / 100 Balance 2642 / 3542 1250 / 1650 450 / 450 400 / 400 Weight 173 lb 1.6 oz 171 lb 15.369 oz 171 lb 15.369 oz 177 lb 11.2 oz Intake & Output 10/25/24 10/26/24 10/27/24 10/28/24 23:59 23:59 23:59 23:59 Intake Total 3122 / 4022 960 / 960 Output Total 0 / 0 480 / 480 50 / 50 Balance 0 / 1189 2642 / 3542 910 / 910 Weight 162 lb 5 oz 173 lb 1.6 oz 172 lb Microbiology Reports for the Last 24 Hours: Microbiology 10/29/24 19:30 Pleural Fluid Gram Stain - Final Microbiology 10/26/24 15:10 Blood Blood Culture - Preliminary NO GROWTH AFTER 24 HOURS 10/26/24 15:10 Blood Blood Culture - Preliminary NO GROWTH AFTER 24 HOURS Constitutional: Present severe distress Head: Present normocephalic and atraumatic ENT: Present normal exam, normal oropharynx and mucous membranes moist Neck: Present normal inspection and full ROM Respiratory: Present decreased breath sounds, respiratory distress, rhonchi and able to speak in complete sentences; Absent wheezes or crackles Cardiac: Present S1/S2, Tachycardia and radial pulses present GI: Present soft and distention; Absent tenderness or guarding Skin: Present intact; Absent cyanosis or jaundice Neuro: Present awake; Absent alert or oriented x 3 Extremities: Present normal inspection; Absent clubbing or cyanosis Psychiatric: Present unable to assess Assessment and Plan *Assessment and plan (1) Pneumothorax: Status: Acute Qualifiers: Encounter type: initial encounter Pneumothorax type: traumatic Qualified Code(s): S27.0XXA - Traumatic pneumothorax, initial encounter Category: Medical Code(s): J93.9 - Pneumothorax, unspecified (2) Pneumonia: Status: Acute Qualifiers: Pneumonia type: aspiration pneumonia Category: Medical Code(s): J18.9 - Pneumonia, unspecified organism (3) Acute respiratory failure with hypoxia: Status: Acute Category: Medical Code(s): J96.01 - Acute respiratory failure with hypoxia (4) Pleural effusion, left: Status: Acute Category: Medical Code(s): J90 - Pleural effusion, not elsewhere classified Plan Mr. Simmons is a 53-year-old male with reported history of alcohol admit presented to ER with generalized weakness and altered mentation. Much of the history is obtained from chart review And upon examination appeared to be in very severe respiratory distress post chest tube dislodgment. 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 Afebrile. Hemodynamically stable. Comprehensive respiratory viral PCR panel negative. Neutrophilic predominant leukocytosis upon admission, improving. Hypokalemia noted upon admission. Chest x-ray upon admission prominent right lower lobe pulmonary airspace disease, improving on follow-up chest x-ray. Other patchy airspace disease noted in the left lingula and right upper lobe. Patient appeared to be having worsening respiratory on this hospital admission, chest x-ray from 10-27-24 morning showed left large pneumothorax s/p left pigtail catheter placement with improvement in pneumothorax. Chest x-ray from this morning pigtail catheter in place, no obvious evidence of pneumothorax. Accidental dislodgment of the pigtail catheter. Immediate follow-up chest x-ray reported not to have any pneumothorax, patient however still needing significantly increased oxygen requirements at this point of time. Repeat chest x-ray did not reported to have any evidence pneumothorax. CT chest small left apical pneumothorax. Small left pleural effusion along with adjacent atelectasis. Bilateral lower lobe airspace disease. Multiple displaced rib fractures. Adjacent pulmonary contusion. Suboptimal study, no obvious evidence of central pulmonary embolism. Interval update: Worsening respiratory status yesterday follow-up chest x-ray worsening pneumothorax status post chest tube placement. Serosanguineous output, around 600 cc so far. No significant output in the last 12 hours. Chest x-ray from this morning near complete resolution of the noted effusion in the left lower lung latif. No pneumothorax. Pleural fluid stain no organisms, culture pending. Blood cultures no growth 48 hours. Plan: Antibiotics can be weaned to Augmentin from pulmonary standpoint to complete a total of 7-day course. Chest tube to waterseal Follow-up with pleural fluid studies Continue levalbuterol and ipratropium 4 hours along with Pulmicort Q12 scheduled Continue oxygen supplementation to maintain O2 saturation goal of 90 to 95%
[2024-10-30] MEDS: SENNOSIDES 8.6MG/DOCUSATE 50MG TABLET 1 TAB PO (11:19)
[2024-10-30] MEDS: POLYETHYLENE GLYCOL 3350 17 GM PACKET PO (11:19)
--- NOTE | 2024-10-30 11:37 | DIET.NUTRFU ---
Patient is more alert today, up in chair. Ate 100% for breakfast along with milkshake and did well for dinner also. no BM recorded since admit, provider started meds to help. Will continue to monitor po intake
[2024-10-30 12:09] LABS: Lactate Dehydrogenase 385 U/L (313-618)
[2024-10-30] MEDS: AMOXICILLIN/POT CLAVULAN 500MG TABLET 1 EACH PO ×2 (13:09→20:23)
[2024-10-30] MEDS: CALCIUM CARBONATE 500MG CHEWTAB 500 MG PO ×2 (13:09→20:23)
[2024-10-30] MEDS: diazePAM 5MG TABLET 5 MG PO ×2 (13:57→20:23)
--- NOTE | 2024-10-30 14:09 | SW/DCPLANNER ---
Addendum entered by Gretchen Parra 11/01/24 14:12: Patient did better w/ ambulating with rolling walker. Patient stated that he is not interested in placement at [facility], prefers to return home w/ his parents and do outpatient PT in [facility]. I have updated Dr Anguiano regarding discharge plans. Patient stated that he has a rolling walker at home. Per MD patient will discharge home tomorrow pending no setbacks. Addendum entered by Gretchen Parra 11/01/24 09:31: Updated patient information faxed to [facility]. Addendum entered by Gretchen Parra 10/31/24 10:39: Helen w/ [facility] is currently reviewing patient information. Patient stated this AM that he is not sure he is interested in placement at this time but is agreeable for information to continued being reviewed by [facility]. Addendum entered by Gretchen Parra 10/30/24 15:35: Patient's family at bedside speaking w/ patient regarding discharge planning. Patient is now agreeable for information to be faxed to [facility]. Patient is still undecided but has agreed for [facility] to review his information. I will continue to follow up w/ patient, family, and [facility]. Discharge date is unknown at this time. Addendum entered by Key Sandoval 10/30/24 15:28: Faxed patient's info to [facility] and will update once we hear back from [facility]. Janell Nava Original Note: I spoke w/ this patient regarding plans once medically stable for discharge. PT/OT evaluated patient and recommended SNF level of care. Patient stated that he resides at home w/ his parents in [facility]. Patient plans to return home w/ his parents. Patient and I had a lengthy discussion regarding his weakness and level of care he will need at home. I spoke w/ patient regarding LTC facilities in [facility] vs Acute Care Rehab such as [facility]. I also explained acute care vs Medicaid placement. Patient quickly stated that [place] is too far away. Patient requested additional time to discuss discharge planning w/ his parents prior to making any decisions. I encouraged patient to consider LTC and [facility] this evening and I will follow up tomorrow morning. Discharge date is unknown at this time.
--- NOTE | 2024-10-30 15:20 | PEERSUPPORT ---
Peer Support Note Patient Information Patient Information: DOS: 10/30/2024 ? Reason: ETOH/AUD Ps follow up ? Building Rapport: Pt stated he is feeling somewhat better today, he is very weak and feels sleepy a lot. He says anything he does depletes his energy even the smallest like talking or focusing. ? Pt says nurses and techs have very helpful to him when he is thirsty or has any needs. He does not like the mittens on his hands, understanding they are necessary. He is able to identify more clarity in his mental state and awareness. ? Ps provides active listening, normalizing feelings and providing positive support for focus on priority of health and process. ? Ps assist with choices of food on menu with dietary in room. ? Pt is able to identify and verbalize he is exhausted and going to rest. Ps will return to follow up and offer support and facilitate phone call to managing attorney in regard to court on 10/31/2024 in [facility]. ? 1:30 pm: Ps follow up ? Ps makes phones call with pt setting up in chair, to managing attorney and circuit court clerks. No answer with managing attorney, circuit court judge advises to send letter stating current hospitalization at [facility]. ? Pt expressed emotions when acknowledging his problem with drinking that has created a mess in his life. He states he wants to sort it out and get well. ? Ps shared personal experiences and stories relevant to instill hope and strength to possibilities of recovery as a whole. ? Ps acted as advocate for patient per request to [facility] AdminLivia who will type letter and forward to [facility]. ? Pts parents visiting in [place] to alert PT to visit to discuss a course of treatment following discharge. ? ?
--- NOTE | 2024-10-30 17:17 | PC.NURSE ---
Pt alert to self and birthdate. Pt is sometimes aware of place/and situation but also thinks he is in [place] at times. Pt CIWA score has been better today, he was medicated once for this though because pt stated he was having hallucinations of a man in the room and the bathroom door opening/closing. Per Dr. adhikari pt chest tube was put to water seal pt has had 60 out since then. Pt has been up to bedside chair most of shift with assistance from PT/OT. Pt has been eating meals himself while someone is monitoring him. Mits have been on most of shift but checked frequently and taken off for breaks with monitoring. Pt family was at bedside today. Pt is now resting in bed with no complaints at this time. call light in reach.
[2024-10-30] MEDS: PANTOPRAZOLE 40MG TABLET 40 MG PO (20:23)
[2024-10-31] VITALS (12 sets, daily range): BP systolic 102–134; BP diastolic 50–99; PULSE 74–100; RESP 16–20; TEMP 36.5–37; O2SAT 89–97; BMI 22.9
[2024-10-31] MEDS: KETOROLAC 30MG/ML VIAL 15 MG IV ×3 (02:00→20:05)
[2024-10-31] MEDS: IPRATROPIUM BROMIDE 0.5 MG/2.5ML SOLUTION IH ×6 (02:33→22:21)
[2024-10-31] MEDS: LEVALBUTEROL 1.25MG/3ML NEB 1.25 MG IH ×6 (02:34→22:21)
--- NOTE | 2024-10-31 04:30 | PC.NURSE ---
Patient is alert to himself and has been aware of his surroundings this shift. Intermittent confusion was noticed upon assessment while awake. Speech coherent but soft-spoken. He was observed to have eyes closed, respirations even and unlabored, and no apparent distress for the majority of the night. During CIWA scoring, the patient has reported at-most symptoms consisting of brief agitation once, and has had a couple instances of noticeable perspiration. Otherwise, the patient has maintained a calm state and has been subjectively/objectively comfortable this shift. PO Diazepam was administered once this shift per CIWA score of 3 at 20:00. CIWA score for 00:00 was 2 and CIWA score for 04:00 was 1. Seizure pads remain in place. Mittens have remained in place for the majority of the shift to prevent the patient from pulling at his chest tube; breaks were allowed and monitored when off + frequent/regular checks were performed when on. Patient has complained of thirstiness this shift; staff has assisted him to drink adequate amounts of ice water. Aspiration precautions taken. Patient has been primarily dependent on staff for repositioning; however, the patient can turn on his own in bed with some minimal assistance. Oxygen saturations have remained > 90% on 2 L of oxygen via nasal cannula. Other vital signs stable. Patient has not been actively coughing this shift; sputum sample remains uncollected due to this. Scheduled medications and breathing treatments were administered as appropriately per OCT. However, Miralax and Senokot-S were held this shift on behalf of frequent, liquified bowel movements. Tums were given once per OCT for complaint of heartburn. Upon auscultation of his lungs, diminished lung sounds were heard. Chest tube pigtail to his left side remains intact and on water-seal. Auscultation of his heart and bowels were within normal findings. Patient has had multiple, watery bowel movements this shift. A purewick has remained in place but changed frequently; urine output measured and documented accordingly. Urine appearance has been red-brown to dark oleg + cloudy to clear in transparency. Rash was noticed on his thigh (appears to be diminishing per previous Sharpie outlines). At this time, the patient remains resting in bed without any further complaints. No acute changes noted thus far. Bed alarm on. Call light within reach.
[2024-10-31] MEDS: BUDESONIDE 0.5MG/2ML NEB 0.5 MG IH ×2 (06:00→19:57)
--- NOTE | 2024-10-31 06:00 | XR_ITS ---
PROCEDURE INFORMATION: Exam: XR Chest Exam date and time: 10/31/2024 5:47 AM Age: 53 years old Clinical indication: Other: Pneumothorax TECHNIQUE: Imaging protocol: Radiologic exam of the chest. Views: 1 view. COMPARISON: CR XR CHEST PORTABLE 10/30/2024 5:34 AM FINDINGS: Tubes, catheters and devices: Stable percutaneous left chest tube. Lungs: There are stable infiltrates versus atelectasis of the right lung base. The lungs are hyperinflated with COPD changes. Pleural spaces: No evidence of a left-sided pneumothorax. Heart/Mediastinum: Stable mild cardiomegaly. Bones/joints: Unremarkable. IMPRESSION: 1. Stable infiltrates versus atelectasis of the right lung base. 2. Stable left chest tube. No visible left-sided pneumothorax.
[2024-10-31 06:35] LABS: Basophils % 0.2 % (0.1-2.0); Eosinophils # 0.1 K/mm3 (0.0-0.4); Eosinophils % 1.2 % (0.1-12.0); Hematocrit 37.5 % (42.0-52.0); Hemoglobin 12.4 g/dL (14.1-18.0); Lymphocytes # 1.2 K/mm3 (0.7-4.5); Lymphocytes % 14.6 % (10-50); Mean Corpuscular HGB Conc 33.1 g/dL (31.8-35.4); Mean Corpuscular Hemoglobin 37.3 pg (27.0-31.2); Mean Platelet Volume 10.3 fl (7.4-10.4); Monocytes # 0.9 K/mm3 (0.1-1.0); Monocytes % 11.1 % (1.7-9.3); Neutrophils % 72.3 % (37.0-80.0); Platelet Count 318 K/mm3 (142-424); Red Blood Count 3.32 M/mm3 (4.60-6.20); Red Cell Distribution Width 14.4 % (11.5-17.5); White Blood Count 8.3 K/mm3 (4.8-10.8)
[2024-10-31 06:48] LABS: Alanine Aminotransferase 35 U/L (12-78); Albumin Level 2.7 g/dl (3.5-5.0); Albumin/Globulin Ratio 1.1 (1.1-1.8); Alkaline Phosphatase 96 U/L (38-126); Aspartate Amino Transferase 48 U/L (17-59); Bilirubin,Total 0.6 mg/dl (0.2-1.3); Blood Urea Nitrogen 29 mg/dl (9-20); Calcium 7.7 mg/dl (8.4-10.2); Carbon Dioxide 24 mmol/L (22.0-30.0); Chloride 114 mmol/L (98-107); Creatinine Clearance Estimated 188 mL/min (50-200); Estimated Glomerular Filt Rate 173 ml/min (>60); GFR (African American) 210 ML/MIN (>60); Globulin 2.4 g/dL (1.3-3.2); Glucose 93 mg/dl (74-100); Magnesium 1.8 mg/dl (1.6-2.3); Sodium 140 mmol/L (136-145); Total Protein,Serum 5.1 g/dl (6.3-8.2)
[2024-10-31 07:47] LABS: Anion Gap 5.6 mEq/L (5-15); Potassium 3.6 mmoL/L (3.5-5.1)
[2024-10-31] MEDS: AMLODIPINE 10MG TABLET 10 MG PO (09:05)
[2024-10-31] MEDS: ENOXAPARIN 40MG/0.4ML SYRINGE 40 MG SUBCUT (09:05)
[2024-10-31] MEDS: FOLIC ACID 1MG TABLET 1 MG PO (09:05)
[2024-10-31] MEDS: CARVEDILOL 6.25MG TABLET 6.25 MG PO ×2 (09:05→20:06)
[2024-10-31] MEDS: AMOXICILLIN/POT CLAVULAN 500MG TABLET 1 EACH PO ×3 (09:05→20:06)
--- NOTE | 2024-10-31 09:33 | P.PN_ITS ---
Subjective *Date: 10/31/24 *Time: 16:21 Interval history: No acute respiratory vents overnight. Pulmonology Exam Inpatient Vital signs and Labs for Last 24 Hours: Temp Pulse Resp BP Pulse Ox O2 Del Method O2 Flow Rate 98.3 F 100 H 20 124/99 H 95 Nasal Cannula 2 10/31/24 04:00 10/31/24 09:18 10/31/24 04:00 10/31/24 04:00 10/31/24 09:18 10/31/24 09:18 10/31/24 09:18 FiO2 32 10/29/24 19:36 Laboratory Results - last 24 hr 10/30/24 06:01: Lactate Dehydrogenase 385 10/31/24 05:45: WBC 8.3, RBC 3.32 L, Hgb 12.4 L, Hct 37.5 L, MCV 113.0 H, MCH 37.3 H, MCHC 33.1, RDW 14.4, Plt Count 318, MPV 10.3, Neut % (Auto) 72.3, Lymph % (Auto) 14.6, [place] % (Auto) 11.1 H, Eos % (Auto) 1.2, Baso % (Auto) 0.2, Neut # (Auto) 6.0, Lymph # (Auto) 1.2, [place] # (Auto) 0.9, Eos # (Auto) 0.1, Baso # (Auto) 0.0, Sodium 140, Potassium 3.6, Chloride 114 H, Carbon Dioxide 24, Anion Gap 5.6, BUN 29 H, Creatinine 0.50 L D, Estimated Creat Clear 188, Estimated GFR 173, Est GFR ( Amer) 210 D, Glucose 93, Calcium 7.7 L, Magnesium 1.8 D, Total Bilirubin 0.6, AST 48, ALT 35, Alkaline Phosphatase 96, Total Protein 5.1 L, Albumin 2.7 L D, Globulin 2.4, Albumin/Globulin Ratio 1.1 Temp Pulse Resp BP Pulse Ox O2 Del Method O2 Flow Rate 98.4 F 84 18 170/119 H 94 L Nasal Cannula 2 10/28/24 07:31 10/28/24 07:31 10/28/24 07:31 10/28/24 07:33 10/28/24 07:31 10/28/24 07:31 10/28/24 07:31 Laboratory Results - last 24 hr 10/27/24 18:30: Chlamy pneumoniae PCR Not detected, Adenovirus (PCR) Not dete cted, B. pertussis DNA (PCR) Not detected, Coronavirus OC43 (PCR) Not detected, Coronavirus HKU1 (PCR) Not detected, Coronavirus 229E (PCR) Not detected, SARS-CoV-2 (PCR) Not detected, Coronavirus NL63 (PCR) Not detected, Human Metapneumovir PCR Not detected, Influenza A (H1) PCR Not detected, Influ A (H1N1/09) PCR Not detected, Influenza A (H3) PCR Not detected, Influenza Type A (PCR) Not detected, Influenza Type B (PCR) Not detected, M. pneumoniae (PCR) Not detected, Parainfluenza 1 (PCR) Not detected, Parainfluenza 2 (PCR) Not detected, Parainfluenza 3 (PCR) Not detected, Parainfluenza 4 (PCR) Not detected, RSV (PCR) Not detected, Entero/Rhino (PCR) Not detected 10/28/24 08:00: WBC 8.5, RBC 3.79 L, Hgb 14.1, Hct 42.2, MCV 111.3 H, MCH 37.2 H , MCHC 33.4, RDW 14.6, Plt Count 146, MPV 10.3, Neut % (Auto) 71.9, Lymph % (Auto) 6.1 L, [place] % (Auto) 21.1 H, Eos % (Auto) 0.0 L, Baso % (Auto) 0.4, Neut # (Auto) 6.1, Lymph # (Auto) 0.5 L, [place] # (Auto) 1.8 H, Eos # (Auto) 0.0, Baso # (Auto) 0.0, Sodium 143, Potassium 3.2 L, Chloride 107, Carbon Dioxide 28, Anion Gap 11.2, BUN 29 H D, Creatinine 0.60 L D, Estimated Creat Clear 155, Estimated GFR 140, Est GFR ( Amer) 170 D, Glucose 74, Hemoglobin A1c 4.4, Calcium 9.4, Magnesium 1.7 D, Total Bilirubin 2.0 H, AST 72 H D, ALT 48, Alkaline Phosphatase 96, Total Protein 5.6 L, Albumin 3.4 L, Globulin 2.2, Albumin/Globulin Ratio 1.5, TSH 0.89 I & O for Labs for Last 24 Hours: Intake & Output 10/28/24 10/29/24 10/30/24 10/31/24 23:59 23:59 23:59 23:59 Intake Total 1300 / 1700 1500 / 1500 500 / 1208 908 / 908 Output Total 50 / 50 1050 / 1050 160 / 360 200 / 200 Balance 1250 / 1650 450 / 450 340 / 848 708 / 708 Weight 171 lb 15.369 oz 171 lb 15.369 oz 177 lb 11.2 oz 173 lb 4.8 oz Intake & Output 10/25/24 10/26/24 10/27/24 10/28/24 23:59 23:59 23:59 23:59 Intake Total 3122 / 4022 960 / 960 Output Total 0 / 0 480 / 480 50 / 50 Balance 0 / 1189 2642 / 3542 910 / 910 Weight 162 lb 5 oz 173 lb 1.6 oz 172 lb Microbiology Reports for the Last 24 Hours: Microbiology 10/29/24 19:30 Pleural Fluid Gram Stain - Final 10/29/24 19:30 Pleural Fluid Body Fluid Culture - Preliminary NO GROWTH AFTER 24 HOURS 10/26/24 15:10 Blood Blood Culture - Preliminary NO GROWTH AFTER 4 DAYS 10/26/24 15:10 Blood Blood Culture - Preliminary NO GROWTH AFTER 4 DAYS Microbiology 10/26/24 15:10 Blood Blood Culture - Preliminary NO GROWTH AFTER 24 HOURS 10/26/24 15:10 Blood Blood Culture - Preliminary NO GROWTH AFTER 24 HOURS Constitutional: Present severe distress Head: Present normocephalic and atraumatic ENT: Present normal exam, normal oropharynx and mucous membranes moist Neck: Present normal inspection and full ROM Respiratory: Present decreased breath sounds, respiratory distress, rhonchi and able to speak in complete sentences; Absent wheezes or crackles Cardiac: Present S1/S2, Tachycardia and radial pulses present GI: Present soft and distention; Absent tenderness or guarding Skin: Present intact; Absent cyanosis or jaundice Neuro: Present awake; Absent alert or oriented x 3 Extremities: Present normal inspection; Absent clubbing or cyanosis Psychiatric: Present unable to assess Assessment and Plan *Assessment and plan (1) Pneumothorax: Status: Acute Qualifiers: Encounter type: initial encounter Pneumothorax type: traumatic Qu alified Code(s): S27.0XXA - Traumatic pneumothorax, initial encounter Category: Medical Code(s): J93.9 - Pneumothorax, unspecified (2) Pneumonia: Status: Acute Qualifiers: Pneumonia type: aspiration pneumonia Category: Medical Code(s): J18.9 - Pneumonia, unspecified organism (3) Acute respiratory failure with hypoxia: Status: Acute Category: Medical Code(s): J96.01 - Acute respiratory failure with hypoxia (4) Pleural effusion, left: Status: Acute Category: Medical Code(s): J90 - Pleural effusion, not elsewhere classified Plan Mr. Simmons is a 53-year-old male with reported history of alcohol admit presented to ER with generalized weakness and altered mentation. Much of the history is obtained from chart review And upon examination appeared to be in very severe respiratory distress post chest tube dislodgment. 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 Afebrile. Hemodynamically stable. Comprehensive respiratory viral PCR panel negative. Neutrophilic predominant leukocytosis upon admission, improving. Hypokalemia noted upon admission. Chest x-ray upon admission prominent right lower lobe pulmonary airspace disease, improving on follow-up chest x-ray. Other patchy airspace disease noted in the left lingula and right upper lobe. Patient appeared to be having worsening respiratory on this hospital admission, chest x-ray from 10-27-24 morning showed left large pneumothorax s/p left pigtail catheter placement with improvement in pneumothorax. Chest x-ray from this morning pigtail catheter in place, no obvious evidence of pneumothorax. Accidental dislodgment of the pigtail catheter. Immediate follow-up chest x-ray reported not to have any pneumothorax, patient however still needing significantly increased oxygen requirements at this point of time. Repeat chest x-ray did not reported to have any evidence pneumothorax. CT chest small left apical pneumothorax. Small left pleural effusion along with adjacent atelectasis. Bilateral lower lobe airspace disease. Multiple displaced rib fractures. Adjacent pulmonary contusion. Suboptimal study, no obvious evidence of central pulmonary embolism. Interval update: Chest tube to waterseal. No obvious evidence of pneumothorax on x-ray this morning. Pleural fluid studies no growth so far. Plan: Clamp the chest tube and follow-up chest x-ray Continue Augmentin from pulmonary standpoint to complete a total of 7-day course. Follow-up with pleural fluid studies Continue levalbuterol and ipratropium 4 hours along with Pulmicort Q12 scheduled Continue oxygen supplementation to maintain O2 saturation goal of 90 to 95%
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
--- NOTE | 2024-10-31 16:21 | XR_ITS ---
PROCEDURE INFORMATION: Exam: XR Chest Exam date and time: 10/31/2024 4:34 PM Age: 53 years old Clinical indication: Device placement; Chest tube; Additional info: Pneumothorax TECHNIQUE: Imaging protocol: Radiologic exam of the chest. Views: 1 view. COMPARISON: CR XR CHEST PORTABLE 10/31/2024 5:47 AM FINDINGS: Tubes, catheters and devices: Chest tube projects over the lower left chest. Lungs: Mild bibasilar atelectasis. No acute airspace consolidation. Pleural spaces: Unremarkable. No pleural effusion. No pneumothorax. Heart/Mediastinum: Mild cardiac enlargement. Bones/joints: Unremarkable. IMPRESSION: 1. Chest tube unchanged in position. 2. Bibasilar atelectasis.
--- NOTE | 2024-10-31 17:19 | PC.NURSE ---
Pt is alert and oriented x4 today. Pt was weaned to RA this morning but after sleeping this evening pt dropped to 89 and was placed back on 1L NC. Chest tube is clamped per Dr. Mane. Pt was up to bedside chair most of shift and worked with PT. He is now resting in bed with no complaints at this time. call light in reach.
--- NOTE | 2024-10-31 17:56 | PEERSUPPORT ---
Peer Support Note Patient Information Patient Information: DOS: 10/31/2024 ? Pt is setting up in chair, eating his lunch. He is thankful to have his mittens off, and understanding the self-control to practice not pulling at his chest tube. ? He says he has things he would like to discuss and will do so following his lunch. Says he is still tired after doing simple task and may rest after his lunch. ? Ps will return to discuss decisions to be made with [facility] and provide support to patients decisions. ? Ps has a template for creating a plan of action to be completed with patient to help pt prioritize recovery journey of physical, mental, emotional, self-determination and motivation. ? Pt is resting throughout the evening 2x during ps return. ? Ps will follow up first thing in the am on 11/01/2024, to further discuss plan.
[2024-10-31] MEDS: PANTOPRAZOLE 40MG TABLET 40 MG PO (20:06)
[2024-10-31] MEDS: SENNOSIDES 8.6MG/DOCUSATE 50MG TABLET 1 TAB PO (20:06)
--- NOTE | 2024-10-31 22:32 | PC.NURSE ---
Senokot-S was administered this shift per OCT, but Miralax was refused (for 20:06). Upon assessment, the patient appeared to be much more alert, aware of his situation, and conversational this evening. He expressed a concern for multiple, watery bowel movements last night, and he even voiced that he remembered them occurring. Per previous nurse report, the patient did not have any bowel movements for the previous shift. However, at this time, the patient had one loose bowel movement. All bed linens + his purewick/brief were changed. A bed bath was given also. Patient voiced eagerness to promote his mobility and quality of elimination needs by using the bedside commode this time. He required x2 assistance with pivoting. He appeared to be a little weak on his feet but with encouragement, he was given plenty of time to transfer safely. Patient tolerated the movement + standing fairly well. Chest tube pigtail to the left side remains intact.
[2024-11-01] VITALS (9 sets, daily range): BP systolic 112–139; BP diastolic 70–90; PULSE 65–103; RESP 16–20; TEMP 36.4–36.8; O2SAT 90–99; BMI 23.2
[2024-11-01] MEDS: KETOROLAC 30MG/ML VIAL 15 MG IV ×3 (01:55→20:00)
[2024-11-01] MEDS: LEVALBUTEROL 1.25MG/3ML NEB 1.25 MG IH ×3 (02:04→10:34)
[2024-11-01] MEDS: IPRATROPIUM BROMIDE 0.5 MG/2.5ML SOLUTION IH ×3 (02:04→10:34)
--- NOTE | 2024-11-01 04:27 | PC.NURSE ---
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 He has appeared to be much more alert and oriented while awake; however, he remains confused with time. Patient has expressed improved memory per vocalization of events and stated that he feels better. Speech appropriate and coherent. Mittens were removed and CIWA scores were discontinued, both during the previous shift. He has not had any complaints of headaches, nausea/vomiting, hallucinations, nor tremors; no visible perspiration has been noted. He was observed to have eyes closed, respirations even and unlabored on 2 L of oxygen via nasal cannula (unable to wean during resting periods), and no apparent distress throughout the night. Patient's left chest tube pigtail remains intact and clamped. Upon auscultation of his lungs, air movement remains diminished but was more present this time. Heart and bowel sounds were within normal findings as well. Patient had one loose bowel movement this shift. A purewick/brief is continuing to be utilized; urine appearance was oleg-colored this shift. He was assisted to use the bedside commode and tolerated pivoting fairly (see prior note). He has been self-turning in bed. Scheduled medications and breathing treatments administered as appropriately per MAR (except Miralax); patient was also able to verbalize significance of Toradol ( help relieve [my] back pain ). Patient requested to eat this shift (stated that he remembered not eating dinner ); a sandwich, BBQ chips, and orange sherbet were given. Aspiration precautions ongoing. No active cough noted. Vital signs stable. At this time, the patient is resting in bed without any complaints. No new needs. Seizure pads in place. Bed alarm on. Call light within reach.
--- NOTE | 2024-11-01 06:00 | XR_ITS ---
PROCEDURE INFORMATION: Exam: XR Chest Exam date and time: 11/01/2024 5:33 AM Age: 53 years old Clinical indication: Other: Pneumothorax TECHNIQUE: Imaging protocol: Radiologic exam of the chest. Views: 1 view. COMPARISON: CR XR CHEST PORTABLE 10/31/2024 4:34 PM FINDINGS: Tubes, catheters and devices: Left pigtail thoracostomy tube shadowing the left lower lobe. Lungs: COPD changes. Pleural spaces: No significant pneumothorax. Perhaps mild increased blunting of the left costophrenic angle. Heart/Mediastinum: Unremarkable. No cardiomegaly. Bones/joints: Degenerative change of the visualized osseous structures. IMPRESSION: No significant interval change. Noting perhaps mild increase in left pleural effusion.
[2024-11-01] MEDS: BUDESONIDE 0.5MG/2ML NEB 0.5 MG IH (06:19)
[2024-11-01 06:31] LABS: Basophils % 0.3 % (0.1-2.0); Eosinophils # 0.1 K/mm3 (0.0-0.4); Eosinophils % 0.6 % (0.1-12.0); Hematocrit 39.3 % (42.0-52.0); Lymphocytes # 1.4 K/mm3 (0.7-4.5); Lymphocytes % 13.8 % (10-50); Mean Corpuscular HGB Conc 33.1 g/dL (31.8-35.4); Mean Corpuscular Hemoglobin 36.8 pg (27.0-31.2); Mean Corpuscular Volume 111.3 fl (80-94); Mean Platelet Volume 10.2 fl (7.4-10.4); Monocytes # 0.7 K/mm3 (0.1-1.0); Monocytes % 6.6 % (1.7-9.3); Neutrophils # 7.8 K/mm3 (1.8-7.8); Platelet Count 355 K/mm3 (142-424); Red Blood Count 3.53 M/mm3 (4.60-6.20); Red Cell Distribution Width 13.9 % (11.5-17.5)
[2024-11-01 06:40] LABS: Anion Gap 6.5 mEq/L (5-15); Blood Urea Nitrogen 19 mg/dl (9-20); Calcium 7.9 mg/dl (8.4-10.2); Carbon Dioxide 25 mmol/L (22.0-30.0); Chloride 109 mmol/L (98-107); Creatinine Clearance Estimated 190 mL/min (50-200); Estimated Glomerular Filt Rate 173 ml/min (>60); GFR (African American) 210 ML/MIN (>60); Glucose 92 mg/dl (74-100); Potassium 3.5 mmoL/L (3.5-5.1); Sodium 137 mmol/L (136-145)
[2024-11-01] MEDS: AMOXICILLIN/POT CLAVULAN 500MG TABLET 1 EACH PO ×3 (08:13→20:04)
[2024-11-01] MEDS: AMLODIPINE 10MG TABLET 10 MG PO (08:14)
[2024-11-01] MEDS: ENOXAPARIN 40MG/0.4ML SYRINGE 40 MG SUBCUT (08:14)
[2024-11-01] MEDS: CALCIUM CARBONATE 500MG CHEWTAB 500 MG PO ×2 (08:14→15:49)
[2024-11-01] MEDS: FOLIC ACID 1MG TABLET 1 MG PO (08:14)
[2024-11-01] MEDS: CARVEDILOL 6.25MG TABLET 6.25 MG PO ×2 (08:14→20:04)
--- NOTE | 2024-11-01 08:56 | PC.NURSE ---
Pt unable to cough anything up for sputum sample.
--- NOTE | 2024-11-01 09:36 | P.PN_ITS ---
Subjective *Date: 11/01/24 *Time: 11:25 Interval history: No acute respiratory events overnight. Patient admits improving respiratory distress Pulmonology Exam Inpatient Vital signs and Labs for Last 24 Hours: Temp Pulse Resp BP Pulse Ox O2 Del Method O2 Flow Rate 97.7 F 88 17 112/70 91 L Nasal Cannula 2 11/01/24 07:44 11/01/24 07:44 11/01/24 07:44 11/01/24 07:44 11/01/24 07:44 11/01/24 07:44 11/01/24 07:44 FiO2 32 10/29/24 19:36 Laboratory Results - last 24 hr 11/01/24 06:15: WBC 10.0, RBC 3.53 L, Hgb 13.0 L, Hct 39.3 L, MCV 111.3 H, MCH 36.8 H, MCHC 33.1, RDW 13.9, Plt Count 355, MPV 10.2, Neut % (Auto) 78.0, Lymph % (Auto) 13.8, [place] % (Auto) 6.6, Eos % (Auto) 0.6, Baso % (Auto) 0.3, Neut # (Auto) 7.8, Lymph # (Auto) 1.4, [place] # (Auto) 0.7, Eos # (Auto) 0.1, Baso # (Auto) 0.0, Sodium 137, Potassium 3.5, Chloride 109 H, Carbon Dioxide 25, Anion Gap 6.5, BUN 19 D, Creatinine 0.50 L, Estimated Creat Clear 190, Estimated GFR 173, Est GFR ( Amer) 210, Glucose 92, Calcium 7.9 L Temp Pulse Resp BP Pulse Ox O2 Del Method O2 Flow Rate 98.4 F 84 18 170/119 H 94 L Nasal Cannula 2 10/28/24 07:31 10/28/24 07:31 10/28/24 07:31 10/28/24 07:33 10/28/24 07:31 10/28/24 07:31 10/28/24 07:31 Laboratory Results - last 24 hr 10/27/24 18:30: Chlamy pneumoniae PCR Not detected, Adenovirus (PCR) Not detected, B. pertussis DNA (PCR) Not detected, Coronavirus OC43 (PCR) Not detected, Coronavirus HKU1 (PCR) Not detected, Coronavirus 229E (PCR) Not detected, SARS-CoV-2 (PCR) Not detected, Coronavirus NL63 (PCR) Not detected, Human Metapneumovir PCR Not detected, Influenza A (H1) PCR Not detected, Influ A (H1N1/09) PCR Not detected, Influenza A (H3) PCR Not detected, Influenza Type A (PCR) Not detected, Influenza Type B (PCR) Not detected, M. pneumoniae (PCR) Not detected, Parainfluenza 1 (PCR) Not detected, Parainfluenza 2 (PCR) Not detected, Parainfluenza 3 (PCR) Not detected, Parainfluenza 4 (PCR) Not detected, RSV (PCR) Not detected, Entero/Rhino (PCR) Not detected 10/28/24 08:00: WBC 8.5, RBC 3.79 L, Hgb 14.1, Hct 42.2, MCV 111.3 H, MCH 37.2 H , MCHC 33.4, RDW 14.6, Plt Count 146, MPV 10.3, Neut % (Auto) 71.9, Lymph % (Auto) 6.1 L, [place] % (Auto) 21.1 H, Eos % (Auto) 0.0 L, Baso % (Auto) 0.4, Neut # (Auto) 6.1, Lymph # (Auto) 0.5 L, [place] # (Auto) 1.8 H, Eos # (Auto) 0.0, Baso # (Auto) 0.0, Sodium 143, Potassium 3.2 L, Chloride 107, Carbon Dioxide 28, Anio n Gap 11.2, BUN 29 H D, Creatinine 0.60 L D, Estimated Creat Clear 155, Estimated GFR 140, Est GFR ( Amer) 170 D, Glucose 74, Hemoglobin A1c 4.4, Calcium 9.4, Magnesium 1.7 D, Total Bilirubin 2.0 H, AST 72 H D, ALT 48, Alkaline Phosphatase 96, Total Protein 5.6 L, Albumin 3.4 L, Globulin 2.2, Albumin/Globulin Ratio 1.5, TSH 0.89 I & O for Labs for Last 24 Hours: Intake & Output 10/29/24 10/30/24 10/31/24 11/01/24 23:59 23:59 23:59 23:59 Intake Total 1500 / 1500 500 / 1208 1788 / 1967 800 / 800 Output Total 1050 / 1050 160 / 360 300 / 500 200 / 200 Balance 450 / 450 340 / 848 1488 / 1468 600 / 600 Weight 171 lb 15.369 oz 177 lb 11.2 oz 173 lb 4.8 oz 175 lb 3.2 oz Intake & Output 10/25/24 10/26/24 10/27/24 10/28/24 23:59 23:59 23:59 23:59 Intake Total 3122 / 4022 960 / 960 Output Total 0 / 0 480 / 480 50 / 50 Balance 0 / 1189 2642 / 3542 910 / 910 Weight 162 lb 5 oz 173 lb 1.6 oz 172 lb Microbiology Reports for the Last 24 Hours: Microbiology 10/29/24 19:30 Pleural Fluid Gram Stain - Final 10/29/24 19:30 Pleural Fluid Body Fluid Culture - Preliminary NO GROWTH AFTER 48 HOURS 10/26/24 15:10 Blood Blood Culture - Final NO GROWTH AFTER 5 DAYS 10/26/24 15:10 Blood Blood Culture - Final NO GROWTH AFTER 5 DAYS Microbiology 10/26/24 15:10 Blood Blood Culture - Preliminary NO GROWTH AFTER 24 HOURS 10/26/24 15:10 Blood Blood Culture - Preliminary NO GROWTH AFTER 24 HOURS Constitutional: Present severe distress Head: Present normocephalic and atraumatic ENT: Present normal exam, normal oropharynx and mucous membranes moist Neck: Present normal inspection and full ROM Respiratory: Present decreased breath sounds, respiratory distress, rhonchi and able to speak in complete sentences; Absent wheezes or crackles Cardiac: Present S1/S2, Tachycardia and radial pulses present GI: Present soft and distention; Absent tenderness or guarding Skin: Present intact; Absent cyanosis or jaundice Neuro: Present awake; Absent alert or oriented x 3 Extremities: Present normal inspection; Absent clubbing or cyanosis Psychiatric: Present unable to assess Assessment and Plan *Assessment and plan (1) Pneumothorax: Status: Acute Qualifiers: Encounter type: initial encounter Pneumothorax type: traumatic Qualified Code(s): S27.0XXA - Traumatic pneumothorax, initial encounter Category: Medical Code(s): J93.9 - Pneumothorax, unspecified (2) Pneumonia: Status: Acute Qualifiers: Pneumonia type: aspiration pneumonia Category: Medical Code(s): J18.9 - Pneumonia, unspecified organism (3) Acute respiratory failure with hypoxia: Status: Acute Category: Medical Code(s): J96.01 - Acute respiratory failure with hypoxia (4) Pleural effusion, left: Status: Acute Category: Medical Code(s): J90 - Pleural effusion, not elsewhere classified Plan Mr. Simmons is a 53-year-old male with reported history of alcohol admit presented to ER with generalized weakness and altered mentation. Much of the history is obtained from chart review And upon examination appeared to be in very severe respiratory distress post chest tube dislodgment. 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 Afebrile. Hemodynamically stable. Comprehensive respiratory viral PCR panel negative. Neutrophilic predominant leukocytosis upon admission, improving. Hyp okalemia noted upon admission. Chest x-ray upon admission prominent right lower lobe pulmonary airspace disease, improving on follow-up chest x-ray. Other patchy airspace disease noted in the left lingula and right upper lobe. Patient appeared to be having worsening respiratory on this hospital admission, chest x-ray from 10-27-24 morning showed left large pneumothorax s/p left pigtail catheter placement with improvement in pneumothorax. Chest x-ray from this morning pigtail catheter in place, no obvious evidence of pneumothorax. Accidental dislodgment of the pigtail catheter. Immediate follow-up chest x-ray reported not to have any pneumothorax, patient however still needing significantly increased oxygen requirements at this point of time. Repeat chest x-ray did not reported to have any evidence pneumothorax. CT chest small left apical pneumothorax. Small left pleural effusion along with adjacent atelectasis. Bilateral lower lobe airspace disease. Multiple displaced rib fractures. Adjacent pulmonary contusion. Suboptimal study, no obvious evidence of central pulmonary embolism. Interval update: Chest tube has been clamped for more than 12 hours.. No evidence of pneumot horax on follow-up chest x-rays. Slight worsening of the noted effusion after clamping. Pleural fluid cultures no growth so far Plan:ay Continue Augmentin from pulmonary standpoint to complete a total of 7-day course. Remove chest tube DuoNebs every 6 scheduled Continue oxygen supplementation to maintain O2 saturation goal of 90 to 95%
[2024-11-01] MEDS: POTASSIUM CHLORIDE 20MEQ TAB 40 MEQ PO ×2 (09:45→14:02)
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
--- NOTE | 2024-11-01 17:04 | PC.NURSE ---
Pt alert and oriented x4. Has continued to improve today. He has worked with therapy and sat up in the bedside chair this shift and even walked into the hallway with assistance. Pt has c/o heartburn a couple times this shift and has been medicated per OCT. Chest tube was removed today by Dr. Serrato. PT remains on RA this shift. family is at bedside, Call light is within reach.
[2024-11-01] MEDS: MULTIVITAMIN TABLET 1 EACH PO (17:43)
[2024-11-01] MEDS: IPRATROPIUM/ALBUTEROL 3 ML NEB IH (18:37)
[2024-11-01] MEDS: POLYETHYLENE GLYCOL 3350 17 GM PACKET PO (20:04)
[2024-11-01] MEDS: SENNOSIDES 8.6MG/DOCUSATE 50MG TABLET 1 TAB PO (20:04)
[2024-11-01] MEDS: PANTOPRAZOLE 40MG TABLET 40 MG PO (20:04)
[2024-11-02] VITALS (9 sets, daily range): BP systolic 109–142; BP diastolic 75–95; PULSE 85–100; RESP 16–25; TEMP 36.3–36.7; O2SAT 88–95; BMI 22.8
[2024-11-02] MEDS: IPRATROPIUM/ALBUTEROL 3 ML NEB IH ×3 (00:20→11:10)
--- NOTE | 2024-11-02 05:36 | PC.NURSE ---
patient received a bath tonight after a large BM, turned himself in bed t/o shift. Remains on room air with no complaints. Has slept most of the shift.
[2024-11-02] MEDS: KETOROLAC 30MG/ML VIAL 15 MG IV (06:08)
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
[2024-11-02 08:18] LABS: Basophils % 0.4 % (0.1-2.0); Eosinophils # 0.1 K/mm3 (0.0-0.4); Eosinophils % 0.7 % (0.1-12.0); Hematocrit 36.2 % (42.0-52.0); Hemoglobin 12.2 g/dL (14.1-18.0); Lymphocytes # 1.6 K/mm3 (0.7-4.5); Lymphocytes % 13.9 % (10-50); Magnesium 1.2 mg/dl (1.6-2.3); Mean Corpuscular HGB Conc 33.7 g/dL (31.8-35.4); Mean Corpuscular Hemoglobin 36.9 pg (27.0-31.2); Mean Corpuscular Volume 109.4 fl (80-94); Mean Platelet Volume 10.4 fl (7.4-10.4); Monocytes # 0.8 K/mm3 (0.1-1.0); Monocytes % 6.9 % (1.7-9.3); Neutrophils # 8.7 K/mm3 (1.8-7.8); Neutrophils % 77.2 % (37.0-80.0); Platelet Count 398 K/mm3 (142-424); Red Blood Count 3.31 M/mm3 (4.60-6.20); Red Cell Distribution Width 13.7 % (11.5-17.5); White Blood Count 11.2 K/mm3 (4.8-10.8)
[2024-11-02 08:19] LABS: Alanine Aminotransferase 35 U/L (12-78); Albumin Level 2.9 g/dl (3.5-5.0); Albumin/Globulin Ratio 1.2 (1.1-1.8); Alkaline Phosphatase 110 U/L (38-126); Anion Gap 9.7 mEq/L (5-15); Aspartate Amino Transferase 40 U/L (17-59); Bilirubin,Total 0.3 mg/dl (0.2-1.3); Blood Urea Nitrogen 9 mg/dl (9-20); Calcium 8.3 mg/dl (8.4-10.2); Carbon Dioxide 19 mmol/L (22.0-30.0); Chloride 113 mmol/L (98-107); Creatinine Clearance Estimated 234 mL/min (50-200); Estimated Glomerular Filt Rate 224 ml/min (>60); GFR (African American) 271 ML/MIN (>60); Globulin 2.5 g/dL (1.3-3.2); Glucose 107 mg/dl (74-100); Potassium 3.7 mmoL/L (3.5-5.1); Sodium 138 mmol/L (136-145); Total Protein,Serum 5.4 g/dl (6.3-8.2)
[2024-11-02] MEDS: AMLODIPINE 10MG TABLET 10 MG PO (08:31)
[2024-11-02] MEDS: THIAMINE 100MG TABLET 100 MG PO (08:32)
[2024-11-02] MEDS: CARVEDILOL 6.25MG TABLET 6.25 MG PO (08:32)
[2024-11-02] MEDS: AMOXICILLIN/POT CLAVULAN 500MG TABLET 1 EACH PO ×2 (08:32→15:36)
[2024-11-02] MEDS: FOLIC ACID 1MG TABLET 1 MG PO (08:32)
[2024-11-02] MEDS: ENOXAPARIN 40MG/0.4ML SYRINGE 40 MG SUBCUT (08:32)
--- NOTE | 2024-11-02 08:48 | PC.NURSE ---
pt incontinent of bowel this morning. nursing cleaned pt up. pt is a 1x assist. still weak in ble. needs help getting in and out of bed. gait unsteady at times but improves with a walker. pt states he would like to go home today.
[2024-11-02] MEDS: CALCIUM CARBONATE 500MG CHEWTAB 500 MG PO (09:54)
[2024-11-02] MEDS: MAGNESIUM SULFATE IN WATER 2 GM/50 ML PIGGYBACK IV ×2 (09:54→10:59)
--- NOTE | 2024-11-02 13:13 | PC.NURSE ---
i have made multiple attempts to call pts family to request a ride. No answer,left message
--- NOTE | 2024-11-02 14:07 | PC.NURSE ---
pt currently speaking with his parents who will be on their way to get him this evening
--- NOTE | 2024-11-02 17:33 | PC.NURSE ---
per pt and family request, pt [prescriptions sent to [facility] in [facility]
--- NOTE | 2024-11-05 10:51 | SW/DCPLANNER ---
Addendum entered by Key Sandoval 11/05/24 11:06: Patient called back. Patient stated that he is aware of his upcoming appointments. Patient stated that he was doing alright. Patient stated that he hasnt picked up his new medicine but plans on picking them up today. Patient stated that he hasnt taken his antibiotics in 2 days and was wondering if that would hurt him. Patient stated that he doesnt have any more concerns or questions at this time. Janell Nava Original Note: Phoned patient x2. Left messages and call back number with name. Janell Nava
== END 2024-11-02 17:30 | disposition home or self-care (01) | DRG 896 ==
LOC: ER 15:22 → ICU 18:49 → 2ND 10-27 20:28
PROVIDERS: Internal Medicine Adolescent Medicine; Internal Medicine Pulmonary Disease; Nurse Practitioner Family; Admitting Provider Student in an Organized Health Care Education/Training Program; Emergency Provider Student in an Organized Health Care Education/Training Program; PCP Family Medicine; Visit Provider Student in an Organized Health Care Education/Training Program
DX: F10.939 Alcohol use, unspecified with withdrawal, unspecified (principal); J69.0 Pneumonitis due to inhalation of food and vomit; J96.01 Acute respiratory failure with hypoxia; S22.43XA Multiple fractures of ribs, bilateral, initial encounter for closed fracture; J93.11 Primary spontaneous pneumothorax; N17.9 Acute kidney failure, unspecified; E51.2 Wernicke's encephalopathy; Y90.0 Blood alcohol level of less than 20 mg/100 ml; F17.210 Nicotine dependence, cigarettes, uncomplicated; E87.6 Hypokalemia; I10 Essential (primary) hypertension; V49.60XA Unspecified car occupant injured in collision with unspecified motor vehicles in traffic accident, initial encounter; Y92.413 State road as the place of occurrence of the external cause; E83.42 Hypomagnesemia; R00.0 Tachycardia, unspecified; G31.2 Degeneration of nervous system due to alcohol
CPT/HCPCS: 36415; 70450; 71045; 71275; 73502; 80048; 80053; 80307; 80320; 81001; 82140; 82607; 82728; 82803; 82962; 83036; 83605; 83615; 83735; 84100; 84443; 85007; 85025; 85610; 85730; 86803; 87040; 87070; 87081; 87205; 87389; 87633; 93005; 94640; 94761; 97110; 97162; 97165; 97530; 99285; J0360; J1650; J1885; J1920; J2270; J2405; J2543; J3360; J3411; J3475; J7120; J7614; J7620; J7644; Q9967

== ENCOUNTER 2024-11-07 14:58 | Outpatient (CLI) | payer OTHER, SELFPAY ==
--- NOTE | 2024-11-07 15:02 | XR_ITS ---
FINAL REPORT TECHNIQUE: Chest PA & Lateral CLINICAL HISTORY: SOB COMPARISON: 11/01/2024 FINDINGS: 2 views of the chest were performed. The pigtail chest catheter has been removed since the prior exam of 11/01/2024. A moderate left pleural effusion is present, slightly increased after catheter removal. The lungs are hyperinflated. The heart size is normal. The mediastinum is within normal limits. There is no pneumothorax. The bony thorax appears intact. IMPRESSION: Pigtail chest catheter in the left hemithorax has been removed since the prior chest x-ray. A moderate left pleural effusion is present, slightly increased after catheter removal. No evidence of pneumothorax is seen. Reviewed, Interpreted and Dictated by Tomasz Dc MD Transcribed by Saundra Urias Authenticated and [facility]
== END 2024-11-07 23:59 | disposition home or self-care (01) ==
LOC: RAD 14:59
PROVIDERS: PCP Family Medicine; Visit Provider Internal Medicine Pulmonary Disease
DX: R06.02 Shortness of breath (principal)
CPT/HCPCS: 71046

== ENCOUNTER 2024-11-21 13:00 | Outpatient (RCR) | payer OTHER, SELFPAY ==
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
== END 2024-11-21 23:59 | disposition home or self-care (01) ==
LOC: PT 13:00
PROVIDERS: PCP Family Medicine; Visit Provider Internal Medicine Adolescent Medicine
DX: S22.43XA Multiple fractures of ribs, bilateral, initial encounter for closed fracture (principal)
CPT/HCPCS: 97110; 97112; 97163; 97530

== ENCOUNTER 2024-12-19 13:00 | Outpatient (RCR) | payer OTHER, SELFPAY | END 2024-12-24 10:57 | disposition home or self-care (01) | LOC: PT 13:00 | PROVIDERS: PCP Family Medicine; Visit Provider Internal Medicine Adolescent Medicine | DX: S22.43XA Multiple fractures of ribs, bilateral, initial encounter for closed fracture (principal) | CPT/HCPCS: 97110; 97112; 97530 ==